=== PATIENT | male | born 1965 | race Caucasian/White ===

== ENCOUNTER → 2020-12-04 10:02 | Outpatient (CLI) | payer SELFPAY | PROVIDERS: PCP Internal Medicine; Visit Provider Nurse Practitioner | DX: Z20.822 Contact with and (suspected) exposure to COVID-19 (principal); U07.1 COVID-19 | CPT/HCPCS: C9803; U0003; U0005 ==

== ENCOUNTER 2021-08-17 21:42 | Emergency (ER) | payer SELFPAY ==
[2021-08-17 21:42] VITALS: BP 172/97; PULSE 115; RESP 16; TEMP 36.9; O2SAT 95; BMI 13.8
--- NOTE | 2021-08-17 21:56 | HMH.EDMCLR ---
ED Disposition Clinical Impression: Medical clearance for incarceration Disposition: Home, Self-Care Condition on Discharge: Good Instructions: DI for Substance Use Disorder Additional Instructions: see pcp for follow up Referrals: Provider,Referral, [Primary Care Provider] - - Critical Care Critical Care Time: No Attestation: On 08/17/21, the high probability of a clinically significant, sudden or life threatening deterioration of the following system(s) required my full and direct attention, intervention and personal management. The time I documented below is in addition to time spent performing reported procedures but includes the following listed in this critical care notation. Medical Decision Making - Medical Records Medical records reviewed: Yes: I reviewed the patient's medical records. - Jacoby Inquiry Pt receiving controlled substance: No Vital Signs: 08/17/21 21:42 Temperature 98.5 F Temperature Source Oral Pulse Rate [Right] 115 H Respiratory Rate 16 Blood Pressure [Right Arm] 172/97 H Blood Pressure Mean [Right Arm] 122 02 Sat by Pulse Oximetry 95 - Lab Data Lab results reviewed: Yes: I reviewed the patient's lab results. Medical Decision Narrative: stable exam Medical Clearance HPI - General Chief complaint: Medical Clearance Stated complaint: MEDICAL CLEARANCE AND BLOOD DRAW Time Seen by Provider: 08/17/21 21:56 Mode of Arrival: Ambulatory Source of Information: Patient, Medical Record Limitations: No Limitations Description of Symptoms (Recalled from ER Triage Doc. by RN): pt here for medical clearence and has no c/o - History of Present Illness HPI Narrative: no c/o MD complaint: medical clearance requested Onset (ago): hour(s) Place: home Traumatic Symptoms: denies traumatic injury Associated Symptoms: denies other symptoms Treatments Prior to Arrival: none Allergies/Adverse reactions: Allergies Allergy/AdvReac Type Severity Reaction Status Date / Time NO KNOWN ALLERGIES Allergy Uncoded 10/21/18 09:00 [facility] History - Hepatitis A Screen Attestation statement:: This patient has been screened for Hepatitis A risk factors. I have reviewed the patient's past medical history: Yes Medical History: Denies:: Diabetes Mellitus Type 1, Diabetes Mellitus Type 2, Lung Disease, Seizures Other Surgeries: Yes: No Previous Surgery, Colonoscopy Amputation: No Fractures: No - Social History Smoking Status: Current some day smoker Tobacco Type: cigarettes Alcohol Intake: current Alcohol Intake Frequency:: 3 or more drinks per day Substance Use Type: denies use Occupational Status: employed Housing: house Household Members: family Family Hx:: Diabetes, Heart Attack ROS Obtained: Yes All systems reviewed & no additional complaints Physical Exam - General General appearance: alert - Head Head exam: normocephalic - Eye Eye exam: Present: PERRL, EOMI - ENT ENT exam: Present: mucous membranes moist - Neck Neck exam: Present: trachea midline - Respiratory Respiratory exam: Absent: respiratory distress - Cardiovascular Cardiovascular exam: Present: regular rate - Abdominal Exam Abdominal exam: Present: soft - Extremities Exam Extremities exam: Present: full ROM - Neurological Exam Neurological exam: Present: alert, CN II-XII intact - Psychiatric Psychiatric exam: Present: normal affect - Skin Skin exam: Absent: rash
[2021-08-17 21:58] VITALS: BP 172/97; PULSE 115; RESP 16; TEMP 36.9; O2SAT 95
== END 2021-08-17 22:04 | disposition home or self-care (01) ==
PROVIDERS: Emergency Provider Emergency Medicine
DX: Z02.89 Encounter for other administrative examinations (principal)
CPT/HCPCS: 99282

== ENCOUNTER 2023-08-12 13:18 | Outpatient (CLI) | payer OTHER, SELFPAY ==
--- OUTSIDE RECORDS SUMMARY | 2023-08-12 13:20 | XMS_ITS | Continuity of Care Document ---
Author Name Unknown Address [address] [place] [id number] Organization [facility] Phone Care Team Providers Care Logistic Manager Name Role Phone MANDY NUNEZ Unavailable MANDY NUNEZ Primary Attending NO, FAMILY P Primary Care MANDY NUNEZ Admitting ALLERGIES AND ADVERSE REACTIONS ALLERGIES AND ADVERSE REACTIONS Code System Allergy Substance Adverse Reaction Date Reaction (Severity) Comment Status Reported By Updated By No Known Allergies [email or web address] on November 14, 2022 1:44:39 PM UTC RESULTS Patient: ZAC SALMON Date of : December [birth year] 1 LABORATORY RESULTS ORDER 200: ACETAMINOPHEN TYL ENOL (LOINC: 3298-7) ORDER DATE: November 14, 2022 1:49:00 PM UTC Specimen Source: Serum/Plasm a PERFORMING LAB: [address] [id number] Result Comment: Final Result Date: November 14, 2022 2:05:00 PM UTC (TECH: TH) LOINC TEST FLAG RESULT REFERENCE RANGE UPDA JEFF BY 3298-7 Acetaminophen [Mass/volume] in Serum or Plasma L 0 ug/mL 10 ug/mL - 30 ug/mL November 14, 2022 2:05:00 PM UTC (TECH: TH) ORDER 300: CBC AUTO W DIFF ( LOINC: 10074-4) ORDER DATE: November 14, 2022 1:49:00 PM UTC Specimen Source: Whole Blood PERFORMING LAB: [address] [id number] Result Comment: Final Result Date: November 14, 2022 2:01:00 PM UTC (TECH: TH) LOINC TEST FLAG RESULT REFERENCE RANGE UPDA JEFF BY 6690-2 Leukocytes [#/volume] in Blood by Automated count N 5.3 10^3/uL 4.5 10^3/uL - 11.5 10^3/uL November 14, 2022 2:01:00 PM UTC (TECH: TH) 789-8 Erythrocytes [#/volume] in Blood by Automated count N 4.32 10^6/uL 4.25 10^6/uL - 5.57 10^6/uL November 14, 2022 2:01:00 PM UTC (TECH: TH) 718-7 Hemoglobin [Mass/volume] in Blood N 15.2 g/dL 13.5 g/dL - 17.2 g/dL November 14, 2022 2:01:00 PM UTC (TECH: TH) 03474-8 Hematocrit [Volume Fraction] of Blood N 43.8 % 42.0 % - 52.0 % November 14, 2022 2:01:00 PM UTC (TECH: TH) 787-2 Erythrocyte mean corpuscular volume [Entitic volume] by Automated count H 101.4 fl 80 fl - 95 fl November 14, 2022 2:01:00 PM UTC (TECH: TH) 59941-7 Erythrocyte mean corpuscular hemoglobin [Entitic mass] in Blood from Fetus by Automated count H 35.2 pg 27.0 pg - 34.0 pg November 14, 2022 2:01:00 PM UTC (TECH: TH) 10489-4 Erythrocyte mean corpuscular hemoglobin concentration [Mass/volume] in Blood from Fetus by Automated count N 34.7 g/dL 32.0 g/dL - 36.0 g/dL November 14, 2022 2:01:00 PM UTC (TECH: TH) 28307-6 Platelets [#/volume] in Blood L 123 10^3/uL 150 10^3/uL - 450 10^3/uL November 14, 2022 2:01:00 PM UTC (TECH: TH) 08652-9 Erythrocyte distribution width [Ratio] L 12.0 % 12.3 % - 15.1 % November 14, 2022 2:01:00 PM UTC (TECH: TH) 96761-5 Platelet mean volume [Entitic volume] in Blood by Automated count H 10.5 fl 7.4 fl - 10.4 fl November 14, 2022 2:01:00 PM UTC (TECH: TH) 21544-1 Granulocytes/100 leukocytes in Blood by Automated count N 68.8 % 40 % - 75 % November 14, 2022 2:01:00 PM UTC (TECH: TH) 736-9 Lymphocytes/100 leukocytes in Blood by Automated count N 19.8 % 15 % - 57 % November 14, 2022 2:01:00 PM UTC (TECH: TH) 5905-5 Monocytes/100 leukocytes in Blood by Automated count N 9.1 % 4.0 % - 12.0 % November 14, 2022 2:01:00 PM UTC (TECH: TH) 713-8 Eosinophils/100 leukocytes in Blood by Automated count N 1.5 % 0.0 % - 4.0 % November 14, 2022 2:01:00 PM UTC (TECH: TH) 706-2 Basophils/100 leukocytes in Blood by Automated count N 0.8 % 0.0 % - 1.0 % November 14, 2022 2:01:00 PM UTC (TECH: TH) 21728-4 Immature granulocytes [#/volume] in Blood N 0.0 % 0.0 % - 0.8 % November 14, 2022 2:01:00 PM UTC (TECH: TH) 83273-7 Granulocytes [#/volume] in Blood by Automated count N 3.61 10^3/uL November 14, 2022 2:01:00 PM UTC (TECH: TH) 731-0 Lymphocytes [#/volume] in Blood by Automated count N 1.04 10^3/uL November 14, 2022 2:01:00 PM UTC (TECH: TH) 742-7 Monocytes [#/volume] in Blood by Automated count N 0.48 10^3/uL November 14, 2022 2:01:00 PM UTC (TECH: TH) 711-2 Eosinophils [#/volume] in Blood by Automated count N 0.08 10^3/uL November 14, 2022 2:01:00 PM UTC (TECH: TH) 704-7 Basophils [#/volume] in Blood by Automated count N 0.04 10^3/uL November 14, 2022 2:01:00 PM UTC (TECH: TH) 53325-3 Immature granulocytes [#/volume] in Blood N 0.00 10^3/uL November 14, 2022 2:01:00 PM UT (TECH: TH) 74754-9 Manual differential performed [Presence] in Blood N NO November 14, 2022 2:01:00 PM UT (TECH: TH) ORDER 400: COMP METABOLIC PA CHUCKY (LOINC: 80301-3) ORDER DATE: November 14, 2022 1:49:00 PM UT Specimen Source: Serum/Plasm a PERFORMING LAB: [address] [id number] Result Comment: Final Result Date: November 14, 2022 2:05:00 PM UT (TECH: TH) LOINC TEST FLAG RESULT REFERENCE RANGE UPDA JEFF BY 2951-2 Sodium [Moles/volume ] in Serum or Plasma N 137 mmol/L 136 mmol/L - 145 mmol/L November 14, 2022 2:05:00 PM UT (TECH: TH) 2823-3 Potassium [Moles/volume] in Serum or Plasma N 3.9 mmol/L 3.5 mmol/L - 5.1 mmol/L November 14, 2022 2:05:00 PM UT (TECH: TH) 5-0 Chloride [Moles/volu me] in Serum or Plasma N 99 mmol/L 98 mmol/L - 107 mmol/L November 14, 2022 2:05:00 PM UT (TECH: TH) 8-9 Carbon dioxide, tota l [Moles/volume] in Serum or Plasma N 30 mmol/L 21 mmol/L - 32 mmol/L November 14, 2022 2:05:00 PM UT (TECH: TH) 87083-3 Anion gap 3 in Serum or Plasma N 8.0 November 14, 2022 2:05:00 PM UT (TECH: TH) 2345-7 Glucose [Mass/volume ] in Serum or Plasma H 155 mg/dL 70 mg/dL - 110 mg/dL November 14, 2022 2:05:00 PM UT (TECH: TH) 3094-0 Urea nitrogen [Mass/volume] in Serum or Plasma N 10 mg/dL 7 mg/dL - 18 mg/dL November 14, 2022 2:05:00 PM UTC (TECH: TH) 2160-0 Creatinine [Mass/volume] in Serum or Plasma N 1.1 mg/dL 0.8 mg/dL - 1.3 mg/dL November 14, 2022 2:05:00 PM [facility] (TECH: TH) 3097-3 Urea nitrogen/Creatinine [Mass Ratio] in Serum or Plasma N 9.1 Ratio 9 Ratio - 21 Ratio November 14, 2022 2:05:00 PM [facility] (TECH: TH) 30130-0 Glomerular filtratio n rate/1.73 sq M.predicted by Creatinine-based formula (MDRD) N 74 mL/min >60 November 14, 2022 2:05:00 PM [facility] (TECH: TH) 2885-2 Protein [Mass/volume ] in Serum or Plasma H 8.4 g/dL 6.4 g/dL - 8.2 g/dL November 14, 2022 2:05:00 PM [facility] (TECH: TH) 1751-7 Albumin [Mass/volume ] in Serum or Plasma N 4.1 g/dL 3.4 g/dL - 5.0 g/dL November 14, 2022 2:05:00 PM [facility] (TECH: TH) 59671-8 Calcium [Mass/volume ] in Serum or Plasma N 9.3 mg/dL 8.5 mg/dL - 10.1 mg/dL November 14, 2022 2:05:00 PM [facility] (TECH: TH) 27504-1 Calcium [Mass/volume ] corrected for total protein in Serum or Plasma N 9.2 mg/dL 8.5 mg/dL - 10.1 mg/dL November 14, 2022 2:05:00 PM [facility] (TECH: TH) 1975-2 Bilirubin.total [Mass/volume] in Serum or Plasma N 1.5 mg/dL 0.4 mg/dL - 1.5 mg/dL November 14, 2022 2:05:00 PM [facility] (TECH: TH) 1920-8 Aspartate aminotransferase [Enzymatic activity/volume] in Serum or Plasma H 121 U/L 15 U/L - 37 U/L November 14, 2022 2:05:00 PM [facility] (TECH: TH) 1742-6 Alanine aminotransferase [Enzymatic activity/volume] in Serum or Plasma H 175 U/L 12 U/L - 78 U/L November 14, 2022 2:05:00 PM [facility] (TECH: TH) 6768-6 Alkaline phosphatase [Enzymatic activity/volume] in Serum or Plasma N 114 U/L 50 U/L - 170 U/L November 14, 2022 2:05:00 PM UTC (TECH: TH) ORDER 500: FENTANYL URINE (L OINC: 70723-8) ORDER DATE: November 14, 2022 1:49:00 PM UTC Specimen Source: URINE PERFORMING LAB: [address] [id number] Result Comment: Final Result Date: November 14, 2022 2:15:00 PM UTC (TECH: TH) LOINC TEST [place] [address]-2 Fentanyl [Presence] in Urine N NEGATIVE NEGATIVE November 14, 2022 2:15:00 PM UTC (TECH: TH) ORDER 600: TRAMADOL URINE (L OINC: 88285-5) ORDER DATE: November 14, 2022 1:49:00 PM UTC Specimen Source: URINE PERFORMING LAB: [address] [id number] Result Comment: Final Result Date: November 14, 2022 2:15:00 PM UTC (TECH: TH) LOINC TEST FLAG [place] [address]-5 Tramadol [Mass/volume] in Urine N NEGATIVE NEGATIVE November 14, 2022 2:15:00 PM UTC (TECH: TH) ORDER 700: URINE DRUG SCREEN - MEDTOX (LOINC: 89216-8) ORDER DATE: November 14, 2022 1:49:00 PM UTC Specimen Source: URINE PERFORMING LAB: [address] [id number] Result Comment: Final Result Date: November 14, 2022 2:14:00 PM UTC (TECH: TH) LOINC TEST FLAG RESULT REFERENCE RANGE UPDATED BY 3530-3 Tetrahydrocannabinol [Mass/volume] in Urine POSITIVE NEGATIVE October 2:14:00 PM UTC (TECH: TH) 3937-0 Phencyclidine [Mass/ volume] in Urine N NEGATIVE NEGATIVE November 14, 2022 2:14:00 PM UTC (TECH: TH) 3398-5 Cocaine [Mass/volume] in Urine N NEGATIVE NEGATIVE November 14, 2022 2:14:00 PM UTC (TECH: TH) 18303-2 Methylenedioxymetham phetamine [Mass/volume] in Urine N NEGATIVE NEGATIVE October 2:14:00 PM UTC (TECH: TH) 8220-6 Opiates [Mass/volume] in Urine N NEGATIVE NEGATIVE November 14, 2022 2:14:00 PM UTC (TECH: TH) 77557-5 Amphetamine [Mass/vo lume] in Urine N NEGATIVE NEGATIVE November 14, 2022 2:14:00 PM UTC (TECH: TH) 9428-4 Benzodiazepines [Mas s/volume] in Urine N NEGATIVE NEGATIVE November 14, 2022 2:14:00 PM UTC (TECH: TH) 93967-7 Tricyclic antidepres sants [Mass/volume] in Urine N NEGATIVE NEGATIVE October 2:14:00 PM UTC (TECH: TH) 3774-7 Methadone [Mass/volume] in Urine N NEGATIV E NEGATIVE November 14, 2022 2:14:00 PM UTC (TECH: TH) 9426-8 Barbiturates [Mass/v olume] in Urine N NEGATIVE NEGATIVE November 14, 2022 2:14:00 PM UTC (TECH: TH) 19386-1 Oxycodone [Mass/volume] in Urine N NEGATIV E NEGATIVE November 14, 2022 2:14:00 PM UTC (TECH: TH) 36063-0 Norpropoxyphene [Mas s/volume] in Urine N NEGATIVE NEGATIVE November 14, 2022 2:14:00 PM UTC (TECH: TH) 3415-7 Buprenorphine [Mass/ volume] in Urine N NEGATIVE NEGATIVE November 14, 2022 2:14:00 PM UTC (TECH: TH) ORDER 800: UA AND MICRO/CULT IF INDICATED (LOINC: 30682-5) ORDER DATE: November 14, 2022 1:49:00 PM UTC Specimen Source: URINE PERFORMING LAB: [address] [id number] Result Comment: Final Result Date: November 14, 2022 2:01:00 PM UTC (TECH: TH) LOINC TEST FLAG RESULT REFERENCE RANGE UPDA JEFF BY 5778-6 Color of Urine N yellow YELLOW Augus 2022 2:01:00 PM UTC (TECH: TH) 5767-9 Appearance of Urine N clear CLEAR November 14, 2022 2:01:00 PM UTC (TECH: TH) 5792-7 Glucose [Mass/volume] in Urine by Test strip N NORM NORMAL November 14, 2022 2:01:00 PM UTC (TECH: TH) 99710-2 Bilirubin.total [Mass/volume] in Urine by Automated test strip N NEGATIVE NEGATIVE November 14, 2022 2:01:00 PM UTC (TECH: TH) 5797-6 Ketones [Mass/volume] in Urine by Test strip N NEGATIVE NEGATIVE November 14, 2022 2:01:00 PM UTC (TECH: TH) 2965-2 Specific gravity of Urine N 1.015 1.005 - 1.035 November 14, 2022 2:01:00 PM UTC (TECH: TH) 27086-8 Erythrocytes [#/volume] in Urine by Automated test strip N NEGATIVE NEGATIVE November 14, 2022 2:01:00 PM UTC (TECH: TH) 61397-7 pH of Urine by Automated test strip N 6.50 5.0 - 7.5 November 14, 2022 2:01:00 PM UTC (TECH: TH) 37689-9 Protein [Presence] in Urine by Test strip N NEGATIVE NEGATIVE November 14, 2022 2:01:00 PM UTC (TECH: TH) 27304-8 Urobilinogen [Mass/volume] in Urine by Automated test strip N 4 mg/dL NORMAL November 14, 2022 2:01:00 PM UTC (TECH: TH) 83245-2 Nitrate [Presence] in Urine N NEGATIVE NEGATIVE November 14, 2022 2:01:00 PM UTC (TECH: TH) 72273-5 Leukocytes [#/volume] in Urine by Test strip N NEGATIVE NEGATIVE November 14, 2022 2:01:00 PM UTC (TECH: TH) 35366-5 Other elements in Urine sediment N NOT REQUIRED November 14, 2022 2:01:00 PM UTC (TECH: TH) 13467-9 Microscopic observation [Identifier] in Urine sediment by Light microscopy N NO November 14, 2022 2:01:00 PM UTC (TECH: TH) ORDER 900: ALCOHOL QUANT (LO INC: 5645-7) ORDER DATE: November 14, 2022 2:29:00 PM UTC Specimen Source: Serum/Plasm a PERFORMING LAB: [address] [id number] Result Comment: Final Result Date: November 14, 2022 2:39:00 PM UTC (TECH: TH) LOINC TEST FLAG RESULT REFERENCE RANGE UPDA JEFF BY 5645-7 Ethanol [Mass/volume ] in Urine N <3 mg/dL 0 mg/dL - 10 mg/dL November 14 2:39:00 PM UTC (TECH: TH) LABORATORY NARRATIVE RESULTS Information is not available RADIOLOGY RESULTS Information is not available PATHOLOGY NARRATIVE RESULTS Information is not available MICROBIOLOGY RESULTS No Micro Labs/Results Exist for Patient BLOOD ADMIN RESULTS Information is not available TREATMENT PLAN DISCHARGE MEDICATIONS Status RXNORM Medication Dose Route Frequency Dates Comments U pdated By Patient discharge medication information is not available. PATIENT OPEN ORDERS Code System Description Frequency Occurrences Priority [place] [address] [facility] EKG study ONE TIME 0 Stat November 14, 2022 1:36:00 PM UT MAYRA Zavala MD [id number] on November 14, 2022 1:36:00 PM UT SCHEDULED PROCEDURES Code System Description Status Scheduled Date Upd ated By Patient scheduled procedure information is not available. MEDICATIONS HOME MEDICATIONS Status RXNORM Medication Dose Route Frequency Dates Comments R eported By Updated By Patient not on Self-Medications [id number] on November 14, 2022 1:44:39 PM UT DISCHARGE MEDICATIONS Status RXNORM Medication Dose Route Frequency Dates Comments Physic windy Updated By No Discharge Medication Info rmation Available INPATIENT MEDICATIONS Status RXNORM Medication Dose Route Frequency Rate Quantity Dates Comments Physician Updated By No Inpatient Medication Info rmation Available SOCIAL HISTORY SOCIAL HISTORY SNOMED-CT Social History Element Description Effective Dates Offered Cessation Comment UpdatedBy [id number] Smoking Status Unknown If Ever Smoked SOCIAL HISTORY - Gender Sex: Male SOCIAL HISTORY - Sexual Behavior Sexual Orientation Gender Identity SNOMED-CT Description SNO MED -CT Description Activity Level No of Partners Partner Type UpdatedBy Information is not available HEALTH CONCERNS Problems Concern Status Health Concern problem infor mation not available. Smoking Status Status Years Used Consumed packs p er day Health Concern smoking histo ry information not available. Family History Concern Status Health Concern family histor y information not available. ENCOUNTERS ENCOUNTER INFORMATION Reason for Visit PSYCH PROBLEM Admission November 14, 2022 1:21:00 PM [place] B [address] [id number] Discharge November 14, 2022 4:25:00 PM UT D ISCHARGED TO HOME OR SELF CARE ENCOUNTER DIAGNOSES Notes information is not cesar ilable. Code System Diagnosis Onset Date Diagnosis information is not available. ABSTRACT DIAGNOSES Code System Diagnosis Updated By Abstract Diagnosis informati on is not available. CARE TEAM Care Logistic Manager Role MANDY NUNEZ Referring MANDY NUNEZ Primary Attending FAMILY NO Primary Care MANDY NUNEZ Admitting CARE TEAM CARE logistics system engineer Role on Team Status Start Date End Date Update d By MAYRA Zavala MD Referring normal October 1:45:27 PM UT November 14, 2022 4:25:00 PM [facility] [id number] on November 14, 2022 1:45:27 PM [facility] MAYRA Zavala MD Attending normal October 1:45:27 PM UTC November 14, 2022 4:25:00 PM [facility] [id number] on November 14, 2022 1:45:27 PM [facility] MAYRA Zavala MD Admitting normal October 1:45:27 PM UTC November 14, 2022 4:25:00 PM [facility] [id number] on November 14, 2022 1:45:27 PM [facility] NO FAMILY PHYSICIAN PCP normal October 172022 1:21:31 PM UTC November 14, 2022 4:25:00 PM [place] [id number] on November 14, 2022 1:45:27 PM [facility]
--- OUTSIDE RECORDS SUMMARY | 2023-08-12 13:20 | XMS_ITS | Continuity of Care Document ---
Author Name Unknown Address [address] [place] [phone] Organization [facility] Phone Care Team Providers Care Diabetes Territory Manager Name Role Phone MANDY NUNEZ Unavailable NO, FAMILY P Primary Care MANDY NUNEZ Primary Attending MANDY NUNEZ Admitting ALLERGIES AND ADVERSE REACTIONS ALLERGIES AND ADVERSE REACTIONS Code System Allergy Substance Adverse Reaction Date Reaction (Severity) Comment Status Reported By Updated By No Known Allergies [email or web address] on November 10, 2022 9:00:50 PM UTC RESULTS Patient: ZAC SALMON Date of : December 23 1 LABORATORY RESULTS ORDER 100: ACETAMINOPHEN TYL ENOL (LOINC: 3298-7) ORDER DATE: November 10, 2022 8:47:00 PM UTC Specimen Source: Serum/Plasm a PERFORMING LAB: [address] [id number] Result Comment: Final Result Date: November 10, 2022 9:28:00 PM UTC (TECH: KSM) LOINC TEST FLAG RESULT REFERENCE RANGE UPDA JEFF BY 3298-7 Acetaminophen [Mass/volume] in Serum or Plasma L 0 ug/mL 10 ug/mL - 30 ug/mL November 10, 2022 9:28:00 PM UTC (TECH: KSM) ORDER 200: BILIRUBIN DIRECT (LOINC: 1968-7) ORDER DATE: November 10, 2022 8:47:00 PM UTC Specimen Source: Serum/Plasm a PERFORMING LAB: [address] [id number] Result Comment: Final Result Date: November 10, 2022 9:28:00 PM UTC (TECH: KSM) LOINC TEST FLAG RESULT REFERENCE RANGE UPDA JEFF BY 1968-7 Bilirubin.direct [Mass/volume] in Serum or Plasma N 0.3 mg/dL 0.0 mg/dL - 0.3 mg/dL November 10, 2022 9:28:00 PM UTC (TECH: KSiconDial) ORDER 300: CBC AUTO W DIFF ( LOINC: 81834-6) ORDER DATE: November 10, 2022 8:47:00 PM UTC Specimen Source: Whole Blood PERFORMING LAB: [address] [id number] Result Comment: Final Result Date: November 10, 2022 9:15:00 PM UTC (TECH: citiservi) LOINC TEST FLAG RESULT REFERENCE RANGE UPDA JEFF BY 6690-2 Leukocytes [#/volume] in Blood by Automated count N 7.3 10^3/uL 4.5 10^3/uL - 11.5 10^3/uL November 10, 2022 9:15:00 PM UTC (TECH: citiservi) 789-8 Erythrocytes [#/volume] in Blood by Automated count N 4.50 10^6/uL 4.25 10^6/uL - 5.57 10^6/uL November 10, 2022 9:15:00 PM UTC (TECH: citiservi) 718-7 Hemoglobin [Mass/volume] in Blood N 15.7 g/dL 13.5 g/dL - 17.2 g/dL November 10, 2022 9:15:00 PM UTC (TECH: citiservi) 33680-5 Hematocrit [Volume Fraction] of Blood N 44.6 % 42.0 % - 52.0 % November 10, 2022 9:15:00 PM UTC (TECH: citiservi) 787-2 Erythrocyte mean corpuscular volume [Entitic volume] by Automated count H 99.1 fl 80 fl - 95 fl November 10, 2022 9:15:00 PM UTC (TECH: citiservi) 64803-2 Erythrocyte mean corpuscular hemoglobin [Entitic mass] in Blood from Fetus by Automated count H 34.9 pg 27.0 pg - 34.0 pg November 10, 2022 9:15:00 PM UTC (TECH: citiservi) 42693-2 Erythrocyte mean corpuscular hemoglobin concentration [Mass/volume] in Blood from Fetus by Automated count N 35.2 g/dL 32.0 g/dL - 36.0 g/dL November 10, 2022 9:15:00 PM UTC (TECH: KSM) 94268-3 Platelets [#/volume] in Blood N 161 10^3/uL 150 10^3/uL - 450 10^3/uL November 10, 2022 9:15:00 PM UTC (TECH: KSM) 21843-3 Erythrocyte distribution width [Ratio] L 12.2 % 12.3 % - 15.1 % November 10, 2022 9:15:00 PM UTC (TECH: KSM) 42318-6 Platelet mean volume [Entitic volume] in Blood by Automated count N 9.7 fl 7.4 fl - 10.4 fl November 10, 2022 9:15:00 PM UTC (TECH: KSM) 33756-5 Granulocytes/100 leukocytes in Blood by Automated count N 66.2 % 40 % - 75 % November 10, 2022 9:15:00 PM UTC (TECH: KSM) 736-9 Lymphocytes/100 leukocytes in Blood by Automated count N 23.0 % 15 % - 57 % November 10, 2022 9:15:00 PM UTC (TECH: KSM) 5905-5 Monocytes/100 leukocytes in Blood by Automated count N 9.2 % 4.0 % - 12.0 % November 10, 2022 9:15:00 PM UTC (TECH: KSM) 713-8 Eosinophils/100 leukocytes in Blood by Automated count N 1.0 % 0.0 % - 4.0 % November 10, 2022 9:15:00 PM UTC (TECH: KSM) 706-2 Basophils/100 leukocytes in Blood by Automated count N 0.5 % 0.0 % - 1.0 % November 10, 2022 9:15:00 PM UTC (TECH: KSM) 17004-4 Immature granulocytes [#/volume] in Blood N 0.1 % 0.0 % - 0.8 % November 10, 2022 9:15:00 PM UTC (TECH: KSM) 72553-6 Granulocytes [#/volume] in Blood by Automated count N 4.83 10^3/uL November 10, 2022 9:15:00 PM UTC (TECH: KSM) 731-0 Lymphocytes [#/volume] in Blood by Automated count N 1.68 10^3/uL November 10, 2022 9:15:00 PM UTC (TECH: citiservi) 742-7 Monocytes [#/volume] in Blood by Automated count N 0.67 10^3/uL November 10, 2022 9:15:00 PM UTC (TECH: KSM) 711-2 Eosinophils [#/volume] in Blood by Automated count N 0.07 10^3/uL November 10, 2022 9:15:00 PM UTC (TECH: ZenkarsM) 704-7 Basophils [#/volume] in Blood by Automated count N 0.04 10^3/uL November 10, 2022 9:15:00 PM UTC (TECH: citiservi) 72378-7 Immature granulocytes [#/volume] in Blood N 0.01 10^3/uL November 10, 2022 9:15:00 PM UTC (TECH: citiservi) 07094-1 Manual differential performed [Presence] in Blood N NO November 10, 2022 9:15:00 PM UTC (TECH: KSiconDial) ORDER 400: COMP METABOLIC PA CHUCKY (LOINC: 64862-0) ORDER DATE: November 10, 2022 8:47:00 PM UTC Specimen Source: Serum/Plasm a PERFORMING LAB: [address] [id number] Result Comment: Final Result Date: November 10, 2022 9:28:00 PM UTC (TECH: KSiconDial) LOINC TEST FLAG RESULT REFERENCE RANGE UPDA JEFF BY 2951-2 Sodium [Moles/volume ] in Serum or Plasma N 139 mmol/L 136 mmol/L - 145 mmol/L November 10, 2022 9:28:00 PM UTC (TECH: KSM) 2823-3 Potassium [Moles/volume] in Serum or Plasma N 3.7 mmol/L 3.5 mmol/L - 5.1 mmol/L November 10, 2022 9:28:00 PM UTC (TECH: ZenkarsM) 5-0 Chloride [Moles/volu me] in Serum or Plasma N 99 mmol/L 98 mmol/L - 107 mmol/L November 10, 2022 9:28:00 PM UTC (TECH: KSM) 2027-9 Carbon dioxide, tota l [Moles/volume] in Serum or Plasma N 25 mmol/L 21 mmol/L - 32 mmol/L November 10, 2022 9:28:00 PM [facility] (TECH: citiservi) 04559-3 Anion gap 3 in Serum or Plasma N 15.0 November 10, 2022 9:28:00 PM [facility] (TECH: citiservi) 2345-7 Glucose [Mass/volume ] in Serum or Plasma H 203 mg/dL 70 mg/dL - 110 mg/dL November 10, 2022 9:28:00 PM [facility] (TECH: citiservi) 3094-0 Urea nitrogen [Mass/volume] in Serum or Plasma N 9 mg/dL 7 mg/dL - 18 mg/dL November 10, 2022 9:28:00 PM [facility] (TECH: citiservi) 2160-0 Creatinine [Mass/volume] in Serum or Plasma N 1.1 mg/dL 0.8 mg/dL - 1.3 mg/dL November 10, 2022 9:28:00 PM [facility] (TECH: citiservi) 3097-3 Urea nitrogen/Creatinine [Mass Ratio] in Serum or Plasma L 8.2 Ratio 9 Ratio - 21 Ratio November 10, 2022 9:28:00 PM [facility] (TECH: citiservi) 01006-8 Glomerular filtratio n rate/1.73 sq M.predicted by Creatinine-based formula (MDRD) N 74 mL/min >60 November 10, 2022 9:28:00 PM [facility] (TECH: citiservi) 2885-2 Protein [Mass/volume ] in Serum or Plasma H 8.6 g/dL 6.4 g/dL - 8.2 g/dL November 10, 2022 9:28:00 PM [facility] (TECH: citiservi) 1751-7 Albumin [Mass/volume ] in Serum or Plasma N 4.1 g/dL 3.4 g/dL - 5.0 g/dL November 10, 2022 9:28:00 PM [facility] (TECH: citiservi) 02268-8 Calcium [Mass/volume ] in Serum or Plasma N 9.4 mg/dL 8.5 mg/dL - 10.1 mg/dL November 10, 2022 9:28:00 PM [facility] (TECH: citiservi) 50943-2 Calcium [Mass/volume ] corrected for total protein in Serum or Plasma N 9.3 mg/dL 8.5 mg/dL - 10.1 mg/dL November 10, 2022 9:28:00 PM UTC (TECH: citiservi) 1975-2 Bilirubin.total [Mass/volume] in Serum or Plasma N 0.7 mg/dL 0.4 mg/dL - 1.5 mg/dL November 10, 2022 9:28:00 PM UTC (TECH: citiservi) 1920-8 Aspartate aminotransferase [Enzymatic activity/volume] in Serum or Plasma H 95 U/L 15 U/L - 37 U/L November 10, 2022 9:28:00 PM UTC (TECH: citiservi) 1742-6 Alanine aminotransferase [Enzymatic activity/volume] in Serum or Plasma H 133 U/L 12 U/L - 78 U/L November 10, 2022 9:28:00 PM UTC (TECH: citiservi) 6768-6 Alkaline phosphatase [Enzymatic activity/volume] in Serum or Plasma N 127 U/L 50 U/L - 170 U/L November 10, 2022 9:28:00 PM UTC (TECH: citiservi) ORDER 500: ALCOHOL QUANT (LO INC: 5645-7) ORDER DATE: November 10, 2022 8:47:00 PM UT Specimen Source: Serum/Plasm a PERFORMING LAB: [address] [id number] Result Comment: Final Result Date: November 10, 2022 9:28:00 PM UT (TECH: citiservi) LOINC TEST FLAG RESULT REFERENCE RANGE UPDA JEFF BY 5645-7 Ethanol [Mass/volume] in Urine H 142 mg/dL 0 mg/dL - 10 mg/dL November 10 9:28:00 PM UTC (TECH: citiservi) ORDER 600: FENTANYL URINE (L OINC: 57592-0) ORDER DATE: November 10, 2022 8:47:00 PM UTC Specimen Source: URINE PERFORMING LAB: [address] [id number] Result Comment: Final Result Date: November 10, 2022 9:06:00 PM UT (TECH: citiservi) LOINC TEST [place] [address]-5 Fentanyl [Presence] in Urine N NEGATIVE NEGATIVE November 10, 2022 9:06:00 PM UT (TECH: citiservi) ORDER 700: SALICYLATE QUANT (LOINC: 4024-6) ORDER DATE: November 10, 2022 8:47:00 PM UTC Specimen Source: Serum/Plasm a PERFORMING LAB: [address] [id number] Result Comment: Final Result Date: November 10, 2022 9:28:00 PM UTC (TECH: KSM) LOINC TEST FLAG RESULT REFERENCE RANGE UPDA JEFF BY 4024-6 Salicylates [Mass/volume] in Serum or Plasma L 0.8 mg/dl 2.8 mg/dl - 20 mg/dl November 10, 2022 9:28:00 PM UTC (TECH: KSM) ORDER 800: THYROID PANEL T3U /T4/FTI (LOINC: 69030-1) ORDER DATE: November 10, 2022 8:47:00 PM UTC Specimen Source: Serum/Plasm a PERFORMING LAB: [address] [id number] Result Comment: Final Result Date: November 10, 2022 9:28:00 PM UTC (TECH: KSM) LOINC TEST FLAG RESULT REFERENCE RANGE UPDA JEFF BY 3050-2 Triiodothyronine res in uptake (T3RU) in Serum or Plasma N 37 % 30 % - 40 % November 10, 2022 9:28:00 PM UTC (TECH: KSM) 3026-2 Thyroxine (T4) [Mass/volume] in Serum or Plasma N 6.0 ug/dL 4.5 ug/dL - 12.1 ug/dL November 10, 2022 9:28:00 PM UTC (TECH: KSM) 93079-3 Thyroxine (T4) free index in Serum or Plasma by calculation N 2.2 1.6 - 3.7 November 10, 2022 9:28:00 PM UTC (TECH: KSM) ORDER 900: TRAMADOL URINE (L OINC: 06729-0) ORDER DATE: November 10, 2022 8:47:00 PM UTC Specimen Source: URINE PERFORMING LAB: [address] [id number] Result Comment: Final Result Date: November 10, 2022 9:06:00 PM UTC (TECH: KSM) LOINC TEST FLAG [place] [address]-4 Tramadol [Mass/volume] in Urine N NEGATIVE NEGATIVE November 10, 2022 9:06:00 PM UTC (TECH: KSM) ORDER 1000: URINE DRUG SCREE N - MEDTOX (LOINC: 15840-8) ORDER DATE: November 10, 2022 8:47:00 PM UTC Specimen Source: URINE PERFORMING LAB: [address] [id number] Result Comment: Final Result Date: November 10, 2022 9:06:00 PM UTC (TECH: KSM) LOINC TEST FLAG RESULT REFERENCE RANGE UPDATED BY 3530-3 Tetrahydrocannabinol [Mass/volume] in Urine POSITIVE NEGATIVE October 9:06:00 PM UTC (TECH: KSM) 3937-0 Phencyclidine [Mass/ volume] in Urine N NEGATIVE NEGATIVE November 10, 2022 9:06:00 PM UTC (TECH: KSM) 3398-5 Cocaine [Mass/volume] in Urine N NEGATIVE NEGATIVE November 10, 2022 9:06:00 PM UTC (TECH: KSM) 80405-2 Methylenedioxymetham phetamine [Mass/volume] in Urine N NEGATIVE NEGATIVE October 9:06:00 PM UTC (TECH: KSM) 8220-6 Opiates [Mass/volume] in Urine N NEGATIVE NEGATIVE November 10, 2022 9:06:00 PM UTC (TECH: KSM) 32611-0 Amphetamine [Mass/vo lume] in Urine N NEGATIVE NEGATIVE November 10, 2022 9:06:00 PM UTC (TECH: KSM) 9428-4 Benzodiazepines [Mas s/volume] in Urine N NEGATIVE NEGATIVE November 10, 2022 9:06:00 PM UTC (TECH: KSM) 34862-4 Tricyclic antidepres sants [Mass/volume] in Urine N NEGATIVE NEGATIVE October 9:06:00 PM UTC (TECH: KSM) 3774-7 Methadone [Mass/volume] in Urine N NEGATIV E NEGATIVE November 10, 2022 9:06:00 PM UTC (TECH: KSM) 9426-8 Barbiturates [Mass/v olume] in Urine N NEGATIVE NEGATIVE November 10, 2022 9:06:00 PM UTC (TECH: KSM) 31571-5 Oxycodone [Mass/volume] in Urine N NEGATIV E NEGATIVE November 10, 2022 9:06:00 PM UTC (TECH: KSM) 87318-6 Norpropoxyphene [Mas s/volume] in Urine N NEGATIVE NEGATIVE November 10, 2022 9:06:00 PM UTC (TECH: citiservi) 3415-7 Buprenorphine [Mass/ volume] in Urine N NEGATIVE NEGATIVE November 10, 2022 9:06:00 PM UTC (TECH: KSM) ORDER 1100: UA AND MICRO/CUL T IF INDICATED (LOINC: 12435-4) ORDER DATE: November 10, 2022 8:47:00 PM UTC Specimen Source: URINE PERFORMING LAB: [address] [id number] Result Comment: Final Result Date: November 10, 2022 8:53:00 PM UTC (TECH: citiservi) LOINC TEST FLAG RESULT REFERENCE RANGE UPDA JEFF BY 5778-6 Color of Urine N yellow YELLOW Augus 2022 8:53:00 PM UTC (TECH: KSiconDial) 5767-9 Appearance of Urine N clear CLEAR November 10, 2022 8:53:00 PM UTC (TECH: citiservi) 5792-7 Glucose [Mass/volume ] in Urine by Test strip N NORM NORMAL November 10 023 8:53:00 PM UTC (TECH: citiservi) 86341-4 Bilirubin.total [Mass/volume] in Urine by Automated test strip N NEGATIVE NEGATIVE October 162022 8:53:00 PM UTC (TECH: citiservi) 5797-6 Ketones [Mass/volume ] in Urine by Test strip N NEGATIVE NEGATIVE November 10 023 8:53:00 PM UTC (TECH: citiservi) 2965-2 Specific gravity of Urine N 1.005 1.005 - 1.035 November 10, 2022 8:53:00 PM UTC (TECH: citiservi) 90648-7 Erythrocytes [#/volu me] in Urine by Automated test strip N NEGATIVE NEGATIVE November 10, 2022 8:53:00 PM UTC (TECH: citiservi) 28736-0 pH of Urine by Autom ated test strip N 6.50 5.0 - 7.5 November 10, 2022 8:53:00 PM UTC (TECH: KSM) 26753-5 Protein [Presence] i n Urine by Test strip N NEGATIVE NEGATIVE November 10 023 8:53:00 PM UTC (TECH: KSM) 08875-6 Urobilinogen [Mass/volume] in Urine by Automated test strip N NORM NORMAL October 162022 8:53:00 PM UTC (TECH: citiservi) 19580-5 Nitrate [Presence] i n Urine N NEGATIVE NEGATIVE November 10, 2022 8:53:00 PM UTC (TECH: citiservi) 14025-0 Leukocytes [#/volume ] in Urine by Test strip N NEGATIVE NEGATIVE November 10 023 8:53:00 PM UTC (TECH: citiservi) 73834-4 Other elements in Ur ine sediment N NOT REQUIRED November 10, 2022 8:53:00 PM UTC (TECH: citiservi) 13056-4 Microscopic observat ion [Identifier] in Urine sediment by Light microscopy N NO November 10, 2022 8:53:00 PM UTC (TECH: citiservi) LABORATORY NARRATIVE RESULTS Information is not available [...] Priority [place] [address]-3 [facility] EKG study ONE TIME 0 Stat November 10, 2022 8:47:00 PM UT MAYRA Zavala MD [id number] on November 10, 2022 8:47:00 PM [facility] SCHEDULED PROCEDURES Code System Description Status Scheduled Date Upd ated By Patient scheduled procedure information is not available. MEDICATIONS HOME MEDICATIONS Status RXNORM Medication Dose Route Frequency Dates Comments R eported By Updated By Patient not on Self-Medications [id number] on November 10, 2022 9:00:51 PM UT DISCHARGE MEDICATIONS Status RXNORM Medication Dose Route Frequency Dates Comments Physic windy Updated By No Discharge Medication Info rmation Available INPATIENT MEDICATIONS Status RXNORM Medication Dose Route Frequency Rate Quantity Dates Comments Physician [facility] [id number] thiamine (VITAMIN B-1) 100 MG/ML SOLN 100.0 MG ONE TIME ONLY Start: November 10, 2022 9:06:0 0 PM UT End: November 10, 2022 9:06:0 0 PM UT MAYRA Zavala MD INTERFAC ED on November 10, 2022 9:05:00 PM UTC Discont inued [id number] multiple vitamin (INFUVITE) INJ 10.0 ML INTRAV ENOUS ONE TIME ONLY Start: November 10, 2022 9:06:0 0 PM UTC End: November 10, 2022 9:06:0 0 PM UTC MAYRA Zavala MD INTERFAC ED on November 10, 2022 9:05:00 PM UTC Discont inued [id number] MAG SULF 2GM/50ML PRE-MIX 40 MG/ML SOLN 2.0 GM INTRAV ENOUS ONE TIME ONLY Start: November 10, 2022 9:10:0 0 PM UTC End: November 10, 2022 9:10:0 0 PM UTC MAYRA Zavala MD INTERFAC ED on November 10, 2022 9:10:00 PM UTC SOCIAL HISTORY SOCIAL HISTORY SNOMED-CT Social History Element Description Effective Dates Offered Cessation Comment UpdatedBy [id number] Smoking Status Unknown If Ever Smoked SOCIAL HISTORY - Gender Sex: Male SOCIAL HISTORY - Sexual Behavior Sexual Orientation Gender Identity SNOMED-CT Description SNO MED -CT Description Activity Level No of Partners Partner Type UpdatedBy Information is not available VITAL SIGNS PATIENT VITAL SIGNS This section displays the mo st recent value for each vital sign as of November 12, 2022 9:50:31 AM UT Loinc Code Vital Sign Activity Date Result Updated By 8310-5 Body temperature November 10, 2022 8:48:00 PM UTC 98.0 [degF] [id number] on November 11, 2022 11:25:40 [place] [address]-3 Body weight Measured November 11, 2022 11:25:43 PM UTC 90.718 kg (200.0 lb) [id number] on November 11, 2022 11:25:43 PM UT 8462-4 Diastolic blood pressure November 10, 2022 11:24:17 PM UTC 78.0 mm[Hg] [id number] on November 11, 2022 11:25:44 PM UT 8867-4 Heart rate November 10, 2022 11:24:17 PM UTC 84 /min [id number] on November 11, 2022 11:25:[place] [address]-3 Oxygen saturation in Arterial blood by Pulse oximetry November 10, 2022 11:24:17 PM UTC 95.0 % [id number] on November 11, 2022 11:25:44 PM UT 9279-1 Respiratory rate November 10, 2022 11:24:17 PM UTC 18 /min [id number] on November 11, 2022 11:25:44 PM UT 8480-6 Systolic blood pressure November 10, 2022 11:24:17 PM UTC 145.0 mm[Hg] [id number] on November 11, 2022 11:25:44 PM [facility] PEDIATRIC GROWTH CHART - VITAL SIGNS This section displays Head C ircumference Percentile, Weight for Length Percentile and BMI Percentile Loinc Code Pediatric Measure Age (Months) Result Updat ed By No Pediatric Growth Chart Pe rcentile Information Available. HEALTH CONCERNS Problems Concern Status Health Concern problem infor mation not available. Smoking Status Status Years Used Consumed packs p er day Health Concern smoking histo ry information not available. Family History Concern Status Health Concern family histor y information not available. ENCOUNTERS ENCOUNTER INFORMATION Reason for Visit PSYCH PROBLEM Admission November 10, 2022 8:38:00 PM [facility] [address] [id number] Discharge November 10, 2022 11:25:00 PM [facility] DISCHARGED TO HOME OR SELF CARE ENCOUNTER DIAGNOSES Notes information is not cesar ilable. Code System Diagnosis Onset Date Diagnosis information is not available. ABSTRACT DIAGNOSES Code System Diagnosis Updated By F10.20 ICD10 ALCOHOL DEPENDENCE, UNCOMPLI CATED [id number] on November 12, 2022 9:50:07 AM [facility] F10.10 ICD10 ALCOHOL ABUSE, UNCOMPLICATED [id number] on November 12, 2022 9:50:07 AM [facility] Y90.6 ICD10 BLOOD ALCOHOL LE CLIFF OF 120-199 MG/100 ML [id number] on November 12, 2022 9:50:07 AM [place] E66.9 ICD10 OBESITY, UNSPECIFIED [id number] on November 12, 2022 9:50:07 AM UT Z68.26 ICD10 BODY MASS INDEX [BMI] 26.0-2 6.9, ADULT [id number] on November 12, 2022 9:50:07 AM UT Z28.310 ICD10 UNVACCINATED FOR COVID-19 PQ [id number] on November 12, 2022 9:50:07 AM UT Z28.9 ICD10 IMMUNIZATION NOT CARRIED OUT FOR UNSPECIFIED REASON [id number] on November 12, 2022 9:50:07 AM UTC Z87.891 ICD10 PERSONAL HISTORY OF NICOTINE DEPENDENCE [id number] on November 12, 2022 9:50:07 AM UTC CARE TEAM Care Diabetes Territory Manager Role MANDY NUNEZ Referring FAMILY NO Primary Care MANDY NUNEZ Primary Attending MANDY NUNEZ Admitting CARE TEAM CARE pointer helper Role on Team Status Start Date End Date Update d By MAYRA Zavala MD Referring normal October 9:01:12 PM UTC November 10, 2022 4:00:00 AM UTC [id number] on November 10, 2022 9:01:12 PM UTC MAYRA Zavala MD Attending normal October 9:01:12 PM UTC November 10, 2022 4:00:00 AM UTC [id number] on November 10, 2022 9:01:12 PM UTC MAYRA Zavala MD Admitting normal October 9:01:12 PM UTC November 10, 2022 4:00:00 AM UTC [id number] on November 10, 2022 9:01:12 PM UTC NO FAMILY PHYSICIAN PCP normal October 162022 8:41:07 PM UTC November 10, 2022 4:00:00 AM UTC [id number] on November 10, 2022 9:01:12 PM UTC
--- OUTSIDE RECORDS SUMMARY | 2023-08-12 13:20 | XMS_ITS | Continuity of Care Document ---
Author Name Unknown Address [address] [place] [phone] Organization [facility] Phone Care Team Providers Care Digital Campaign Specialist Name Role Phone MANDY NUNEZ Unavailable NO, FAMILY P Primary Care MANDY NUNEZ Primary Attending MANDY NUNEZ Admitting ALLERGIES AND ADVERSE REACTIONS ALLERGIES AND ADVERSE REACTIONS Code System Allergy Substance Adverse Reaction Date Reaction (Severity) Comment Status Reported By Updated By No Known Allergies [id number] on November 10, 2022 9:00:50 PM UTC RESULTS Patient: ZAC SALMON Date of : December 23 1 LABORATORY RESULTS ORDER 100: ACETAMINOPHEN TYL ENOL (LOINC: 3298-7) ORDER DATE: November 10, 2022 8:47:00 PM UTC Specimen Source: Serum/Plasm a PERFORMING LAB: [address] [id number] Result Comment: Final Result Date: November 10, [...] UTC Specimen Source: Serum/Plasm a PERFORMING LAB: [address] [id number] Result Comment: Final Result Date: November 10, 2022 9:28:00 PM UTC (TECH: [employer]) LOINC TEST FLAG RESULT REFERENCE RANGE UPDA JEFF BY 1968-7 Bilirubin.direct [Mass/volume] in Serum or Plasma N 0.3 mg/dL 0.0 mg/dL - 0.3 mg/dL November 10, 2022 9:28:00 PM UTC (TECH: [employer]) ORDER 300: CBC AUTO W DIFF ( LOINC: 85806-9) ORDER DATE: November 10, 2022 8:47:00 PM UTC Specimen Source: Whole Blood PERFORMING LAB: [address] [id number] Result Comment: Final Result Date: November 10, 2022 9:15:00 PM UTC (TECH: [employer]) LOINC TEST FLAG RESULT REFERENCE RANGE UPDA JEFF BY 6690-2 Leukocytes [#/volume] in Blood by Automated count N 7.3 10^3/uL 4.5 10^3/uL - 11.5 10^3/uL November 10, 2022 9:15:00 PM UTC (TECH: [employer]) 789-8 Erythrocytes [#/volume] in Blood by Automated count N 4.50 10^6/uL 4.25 10^6/uL - 5.57 10^6/uL November 10, 2022 9:15:00 PM UTC (TECH: [employer]) 718-7 Hemoglobin [Mass/volume] in Blood N 15.7 g/dL 13.5 g/dL - 17.2 g/dL November 10, 2022 9:15:00 PM UTC (TECH: [employer]) 92580-3 Hematocrit [Volume Fraction] of Blood N 44.6 % 42.0 % - 52.0 % November 10, 2022 9:15:00 PM UTC (TECH: [employer]) 787-2 Erythrocyte mean corpuscular volume [Entitic volume] by Automated count H 99.1 fl 80 fl - 95 fl November 10, 2022 9:15:00 PM UTC (TECH: [employer]) 17368-4 Erythrocyte mean corpuscular hemoglobin [Entitic mass] in Blood from Fetus by Automated count H 34.9 pg 27.0 pg - 34.0 pg November 10, 2022 9:15:00 PM UTC (TECH: [employer]) 70588-2 Erythrocyte mean corpuscular hemoglobin concentration [Mass/volume] in Blood from Fetus by Automated count N 35.2 g/dL 32.0 g/dL - 36.0 g/dL November 10, 2022 9:15:00 PM UTC (TECH: [employer]) 98463-1 Platelets [#/volume] in Blood N 161 10^3/uL 150 10^3/uL - 450 10^3/uL November 10, 2022 9:15:00 PM UTC (TECH: [employer]) 29568-3 Erythrocyte distribution width [Ratio] L 12.2 % 12.3 % - 15.1 % November 10, 2022 9:15:00 PM UTC (TECH: [employer]) 78204-3 Platelet mean volume [Entitic volume] in Blood by Automated count N 9.7 fl 7.4 fl - 10.4 fl November 10, 2022 9:15:00 PM UTC (TECH: [employer]) 98563-8 Granulocytes/100 leukocytes in Blood by Automated count [...] 10, 2022 9:15:00 PM UTC (TECH: [employer]) 10962-2 Immature granulocytes [#/volume] in Blood N 0.1 % 0.0 % - 0.8 % November 10, 2022 9:15:00 PM UTC (TECH: [employer]) 51156-4 Granulocytes [#/volume] in Blood by Automated count N 4.83 10^3/uL November 10, 2022 9:15:00 PM UTC (TECH: [employer]) 731-0 Lymphocytes [#/volume] in Blood by Automated count N 1.68 10^3/uL November 10, 2022 9:15:00 PM UTC (TECH: [employer]) 742-7 Monocytes [#/volume] in Blood by Automated count N 0.67 10^3/uL November 10, 2022 9:15:00 PM UTC (TECH: [employer]) 711-2 Eosinophils [#/volume] in Blood by Automated count N 0.07 10^3/uL November 10, 2022 9:15:00 PM UTC (TECH: [employer]) 704-7 Basophils [#/volume] in Blood by Automated count N 0.04 10^3/uL November 10, 2022 9:15:00 PM UTC (TECH: [employer]) 15631-4 Immature granulocytes [#/volume] in Blood N 0.01 10^3/uL November 10, 2022 9:15:00 PM UTC (TECH: [employer]) 55361-8 Manual differential performed [Presence] in Blood N NO November 10, 2022 9:15:00 PM UTC (TECH: [employer]) ORDER 400: COMP METABOLIC PA CHUCKY (LOINC: 79053-0) ORDER DATE: November 10, 2022 8:47:00 PM UTC Specimen Source: Serum/Plasm a PERFORMING LAB: [address] [id number] Result Comment: Final Result Date: November 10, 2022 9:28:00 PM UTC (TECH: [employer]) LOINC TEST FLAG RESULT REFERENCE RANGE UPDA JEFF BY 2951-2 Sodium [Moles/volume ] in Serum or Plasma N 139 mmol/L 136 mmol/L - 145 mmol/L November 10, 2022 9:28:00 PM UTC (TECH: [employer]) 2823-3 Potassium [Moles/volume] in Serum or Plasma N 3.7 mmol/L 3.5 mmol/L - 5.1 mmol/L November 10, 2022 9:28:00 PM UTC (TECH: [employer]) 5-0 Chloride [Moles/volu me] in Serum or Plasma N 99 mmol/L 98 mmol/L - 107 mmol/L November 10, 2022 9:28:00 PM UTC (TECH: [employer]) 2027-9 Carbon dioxide, tota l [Moles/volume] in Serum or Plasma N 25 mmol/L 21 mmol/L - 32 mmol/L November 10, 2022 9:28:00 PM [facility] (TECH: [employer]) 91990-4 Anion gap 3 in Serum or Plasma N 15.0 November 10, 2022 9:28:00 PM [facility] (TECH: [employer]) 2345-7 Glucose [Mass/volume ] in Serum or Plasma H 203 mg/dL 70 mg/dL - 110 mg/dL November 10, 2022 9:28:00 PM [facility] (TECH: [employer]) 3094-0 Urea nitrogen [Mass/volume] in Serum or Plasma N 9 mg/dL 7 mg/dL - 18 mg/dL November 10, 2022 9:28:00 PM [facility] (TECH: [employer]) 2160-0 Creatinine [Mass/volume] in Serum or Plasma N 1.1 mg/dL 0.8 mg/dL - 1.3 mg/dL November 10, 2022 9:28:00 PM [facility] (TECH: [employer]) 3097-3 Urea nitrogen/Creatinine [Mass Ratio] in Serum or Plasma L 8.2 Ratio 9 Ratio - 21 Ratio November 10, 2022 9:28:00 PM [facility] (TECH: [employer]) 76222-0 Glomerular filtratio n rate/1.73 sq M.predicted by Creatinine-based formula (MDRD) N 74 mL/min >60 November 10, 2022 9:28:00 PM [facility] (TECH: [employer]) 2885-2 Protein [Mass/volume ] in Serum or Plasma H 8.6 g/dL 6.4 g/dL - 8.2 g/dL November 10, 2022 9:28:00 PM [facility] (TECH: [employer]) 1751-7 Albumin [Mass/volume ] in Serum or Plasma N 4.1 g/dL 3.4 g/dL - 5.0 g/dL November 10, 2022 9:28:00 PM [place] (TECH: [employer]) 11493-5 Calcium [Mass/volume ] in Serum or Plasma N 9.4 mg/dL 8.5 mg/dL - 10.1 mg/dL November 10, 2022 9:28:00 PM [facility] (TECH: [employer]) 09535-4 Calcium [Mass/volume ] corrected for total protein in Serum or Plasma N 9.3 mg/dL 8.5 mg/dL - 10.1 mg/dL November 10, 2022 9:28:00 PM UTC (TECH: [employer]) 1975-2 Bilirubin.total [Mass/volume] in Serum or Plasma N 0.7 mg/dL 0.4 mg/dL - 1.5 mg/dL November 10, 2022 9:28:00 PM UTC (TECH: [employer]) 1920-8 Aspartate aminotransferase [Enzymatic activity/volume] in Serum or Plasma H 95 U/L 15 U/L - 37 U/L November 10, 2022 9:28:00 PM UTC (TECH: [employer]) 1742-6 Alanine aminotransferase [Enzymatic activity/volume] in Serum or Plasma H 133 U/L 12 U/L - 78 U/L November 10, 2022 9:28:00 PM UTC (TECH: [employer]) 6768-6 Alkaline phosphatase [Enzymatic activity/volume] in Serum or Plasma N 127 U/L 50 U/L - 170 U/L November 10, 2022 9:28:00 PM UTC (TECH: [employer]) ORDER 500: ALCOHOL QUANT (LO INC: 5645-7) ORDER DATE: November 10, 2022 8:47:00 PM UT Specimen Source: Serum/Plasm a PERFORMING LAB: [address] [id number] Result Comment: Final Result Date: November 10, 2022 9:28:00 PM UT (TECH: [employer]) LOINC TEST FLAG RESULT REFERENCE RANGE UPDA JEFF BY 5645-7 Ethanol [Mass/volume] in Urine H 142 mg/dL 0 mg/dL - 10 mg/dL November 10 9:28:00 PM UTC (TECH: [employer]) ORDER 600: FENTANYL URINE (L OINC: 13262-5) ORDER DATE: November 10, 2022 8:47:00 PM UTC Specimen Source: URINE PERFORMING LAB: [address] [id number] Result Comment: Final Result Date: November 10, 2022 9:06:00 PM UT (TECH: [employer]) LOINC TEST [place] [address]-9 Fentanyl [Presence] in Urine N NEGATIVE NEGATIVE November 10, 2022 9:06:00 PM UT (TECH: [employer]) ORDER 700: SALICYLATE QUANT (LOINC: 4024-6) ORDER DATE: November 10, 2022 8:47:00 PM UTC Specimen Source: Serum/Plasm a PERFORMING LAB: [address] [id number] Result Comment: Final Result Date: November 10, 2022 9:28:00 PM UTC (TECH: [employer]) LOINC TEST FLAG RESULT REFERENCE RANGE UPDA JEFF BY 4024-6 Salicylates [Mass/volume] in Serum or Plasma L 0.8 mg/dl 2.8 mg/dl - 20 mg/dl November 10, 2022 9:28:00 PM UTC (TECH: [employer]) ORDER 800: THYROID PANEL T3U /T4/FTI (LOINC: 67268-4) ORDER DATE: November 10, 2022 8:47:00 PM UTC Specimen Source: Serum/Plasm a PERFORMING LAB: [address] [id number] Result Comment: Final Result Date: November 10, [...] 10, 2022 9:28:00 PM UTC (TECH: [employer]) 83913-7 Thyroxine (T4) free index in Serum or Plasma by calculation N 2.2 1.6 - 3.7 November 10, 2022 9:28:00 PM UTC (TECH: [employer]) ORDER 900: TRAMADOL URINE (L OINC: 90709-2) ORDER DATE: November 10, 2022 8:47:00 PM UTC Specimen Source: URINE PERFORMING LAB: [address] [id number] Result Comment: Final Result Date: November 10, 2022 9:06:00 PM UTC (TECH: [employer]) LOINC TEST FLAG [place] [address]-5 Tramadol [Mass/volume] in Urine N NEGATIVE NEGATIVE November 10, 2022 9:06:00 PM UTC (TECH: [employer]) ORDER 1000: URINE DRUG SCREE N - MEDTOX (LOINC: 08524-8) ORDER DATE: November 10, 2022 8:47:00 PM UTC Specimen Source: URINE PERFORMING LAB: [address] [id number] Result Comment: Final Result Date: November 10, [...] 10, 2022 9:06:00 PM UTC (TECH: [employer]) 11230-8 Methylenedioxymetham phetamine [Mass/volume] in Urine N NEGATIVE NEGATIVE October 9:06:00 PM UTC (TECH: [employer]) 8220-6 Opiates [Mass/volume] in Urine N NEGATIVE NEGATIVE November 10, 2022 9:06:00 PM UTC (TECH: [employer]) 09189-0 Amphetamine [Mass/vo lume] in Urine N NEGATIVE NEGATIVE November 10, 2022 9:06:00 PM UTC (TECH: [employer]) 9428-4 Benzodiazepines [Mas s/volume] in Urine N NEGATIVE NEGATIVE November 10, 2022 9:06:00 PM UTC (TECH: [employer]) 68378-1 Tricyclic antidepres sants [Mass/volume] in Urine N NEGATIVE NEGATIVE October 9:06:00 PM UTC (TECH: [employer]) 3774-7 Methadone [Mass/volume] in Urine N NEGATIV E NEGATIVE November 10, 2022 9:06:00 PM UTC (TECH: [employer]) 9426-8 Barbiturates [Mass/v olume] in Urine N NEGATIVE NEGATIVE November 10, 2022 9:06:00 PM UTC (TECH: [employer]) 03038-0 Oxycodone [Mass/volume] in Urine N NEGATIV E NEGATIVE November 10, 2022 9:06:00 PM UTC (TECH: [employer]) 21237-7 Norpropoxyphene [Mas s/volume] in Urine N NEGATIVE NEGATIVE November 10, 2022 9:06:00 PM UTC (TECH: [employer]) 3415-7 Buprenorphine [Mass/ volume] in Urine N NEGATIVE NEGATIVE November 10, 2022 9:06:00 PM UTC (TECH: [employer]) ORDER 1100: UA AND MICRO/CUL T IF INDICATED (LOINC: 72589-3) ORDER DATE: November 10, 2022 8:47:00 PM UTC Specimen Source: URINE PERFORMING LAB: [address] [id number] Result Comment: Final Result Date: November 10, 2022 8:53:00 PM UTC (TECH: [employer]) LOINC TEST FLAG RESULT REFERENCE RANGE UPDA JEFF BY 5778-6 Color of Urine N yellow YELLOW Augus 2022 8:53:00 PM UTC (TECH: [employer]) 5767-9 Appearance of Urine N clear CLEAR November 10, 2022 8:53:00 PM UTC (TECH: [employer]) 5792-7 Glucose [Mass/volume ] in Urine by Test strip N NORM NORMAL November 10 023 8:53:00 PM UTC (TECH: [employer]) 96536-5 Bilirubin.total [Mass/volume] in Urine by Automated test strip N NEGATIVE NEGATIVE October 162022 8:53:00 PM UTC (TECH: [employer]) 5797-6 Ketones [Mass/volume ] in Urine by Test strip N NEGATIVE NEGATIVE November 10 023 8:53:00 PM UTC (TECH: [employer]) 2965-2 Specific gravity of Urine N 1.005 1.005 - 1.035 November 10, 2022 8:53:00 PM UTC (TECH: [employer]) 21642-2 Erythrocytes [#/volu me] in Urine by Automated test strip N NEGATIVE NEGATIVE November 10, 2022 8:53:00 PM UTC (TECH: [employer]) 53249-1 pH of Urine by Autom ated test strip N 6.50 5.0 - 7.5 November 10, 2022 8:53:00 PM UTC (TECH: [employer]) 80919-7 Protein [Presence] i n Urine by Test strip N NEGATIVE NEGATIVE November 10 023 8:53:00 PM UTC (TECH: [employer]) 66108-6 Urobilinogen [Mass/volume] in Urine by Automated test strip N NORM NORMAL October 162022 8:53:00 PM UTC (TECH: [employer]) 64270-7 Nitrate [Presence] i n Urine N NEGATIVE NEGATIVE November 10, 2022 8:53:00 PM UTC (TECH: [employer]) 59239-9 Leukocytes [#/volume ] in Urine by Test strip N NEGATIVE NEGATIVE November 10 023 8:53:00 PM UTC (TECH: [employer]) 65813-0 Other elements in Ur ine sediment N NOT REQUIRED November 10, 2022 8:53:00 PM UTC (TECH: [employer]) 53937-5 Microscopic observat ion [Identifier] in Urine sediment by Light microscopy N NO November 10, 2022 8:53:00 PM UTC (TECH: [employer]) LABORATORY NARRATIVE RESULTS Information is not available [...] Priority [place] [address] [facility] EKG study ONE TIME 0 Stat November 10, 2022 8:47:00 PM UT MAYRA Zavala MD [id number] on November 10, 2022 8:47:00 PM [facility] SCHEDULED PROCEDURES Code System Description Status Scheduled Date Upd ated By Patient scheduled procedure information is not available. MEDICATIONS HOME MEDICATIONS Status RXNORM Medication Dose Route Frequency Dates Comments R eported By Updated By Patient not on Self-Medications [id number] on November 10, 2022 9:00:51 PM UT DISCHARGE MEDICATIONS Status RXNORM Medication Dose Route Frequency Dates Comments Physic windy Updated By No Discharge Medication Info rmation Available INPATIENT MEDICATIONS Status RXNORM Medication Dose Route Frequency Rate Quantity Dates Comments Physician Updated By [facility] 021310 thiamine (VITAMIN B-1) 100 MG/ML SOLN 100.0 MG ONE TIME ONLY Start: November 10, 2022 9:06:0 0 PM UT End: November 10, 2022 9:06:0 0 PM UT MAYRA Zavala MD INTERFAC ED on November 10, 2022 9:05:00 PM UTC Discont inued [id number] multiple vitamin (INFUVITE) INJ 10.0 ML INTRAV ENOUS ONE TIME ONLY Start: November 10, 2022 9:06:0 0 PM UTC End: November 10, 2022 9:06:0 0 PM UTC MAYRA Zavala MD INTERFAC ED on November 10, 2022 9:05:00 PM UTC Discont inued [id number] MAG SULF 2GM/50ML PRE-MIX 40 MG/ML SOLN 2.0 GM INTRAV ENOUS ONE TIME ONLY Start: November 10, 2022 9:10:0 0 PM UTC End: November 10, 2022 9:10:0 0 PM UTC MAYRA Zavala MD INTERFAC ED on November 10, 2022 9:10:00 PM UTC SOCIAL HISTORY SOCIAL HISTORY SNOMED-CT Social History Element Description Effective Dates Offered Cessation Comment UpdatedBy [id number] Smoking Status Unknown If Ever Smoked SOCIAL [...] PROBLEM Admission November 10, 2022 8:38:00 PM [place] B [address] [address] Discharge November 10, 2022 11:25:00 PM UT DISCHARGED TO HOME OR SELF CARE ENCOUNTER DIAGNOSES Notes information is not cesar ilable. Code System Diagnosis Onset Date Diagnosis information is not available. ABSTRACT DIAGNOSES Code System Diagnosis Updated By Abstract Diagnosis informati on is not available. CARE TEAM Care Digital Campaign Specialist Role MANDY NUNEZ Referring FAMILY NO Primary Care MANDY NUNEZ Primary Attending MANDY NUNEZ Admitting CARE TEAM CARE feeder associate Role on Team Status Start Date End Date Update d By MAYRA Zavala MD Referring normal October 9:01:12 PM UTC November 10, 2022 11:25:00 PM UT [id number] on November 10, 2022 9:01:12 PM UT MAYRA Zavala MD Attending normal October 9:01:12 PM [facility] November 10, 2022 11:25:00 PM [facility] [id number] on November 10, 2022 9:01:12 PM [facility] MAYRA Zavala MD Admitting normal October 9:01:12 PM [facility] November 10, 2022 11:25:00 PM [facility] [id number] on November 10, 2022 9:01:12 PM [facility] NO FAMILY PHYSICIAN PCP normal October 162022 8:41:07 PM [facility] November 10, 2022 11:25:00 PM [facility] [id number] on November 10, 2022 9:01:12 PM [facility]
--- OUTSIDE RECORDS SUMMARY | 2023-08-12 13:20 | XMS_ITS | Continuity of Care Document ---
Author Name Unknown Address [address] [place] [phone] Organization [facility] Phone Care Team Providers Care Violent Crimes Detective Name Role Phone MANDY NUNEZ Unavailable MANDY NUNEZ Primary Attending NO, FAMILY P Primary Care MANDY NUNEZ Admitting ALLERGIES AND ADVERSE REACTIONS ALLERGIES AND ADVERSE REACTIONS Code System Allergy Substance Adverse Reaction Date Reaction (Severity) Comment Status Reported By Updated By No Known Allergies [id number] on November 14, 2022 1:44:39 PM UTC RESULTS Patient: ZAC SALMON Date of : December 23 1 LABORATORY RESULTS ORDER 200: ACETAMINOPHEN TYL ENOL (LOINC: 3298-7) ORDER DATE: November 14, 2022 1:49:00 PM UTC Specimen Source: Serum/Plasm a PERFORMING LAB: [address] [id number] Result Comment: Final Result Date: November 14, 2022 2:05:00 PM UTC (TECH: TH) LOINC TEST FLAG RESULT REFERENCE RANGE UPDA JEFF BY 3298-7 Acetaminophen [Mass/volume] in Serum or Plasma L 0 ug/mL 10 ug/mL - 30 ug/mL November 14, 2022 2:05:00 PM UTC (TECH: TH) ORDER 300: CBC AUTO W DIFF ( LOINC: 46167-9) ORDER DATE: November 14, 2022 1:49:00 PM UTC Specimen Source: Whole Blood PERFORMING LAB: [address] [id number] Result Comment: Final Result Date: November 14, [...] 14, 2022 2:01:00 PM UTC (TECH: TH) 39466-7 Hematocrit [Volume Fraction] of Blood N 43.8 % 42.0 % - 52.0 % November 14, 2022 2:01:00 PM UTC (TECH: TH) 787-2 Erythrocyte mean corpuscular volume [Entitic volume] by Automated count H 101.4 fl 80 fl - 95 fl November 14, 2022 2:01:00 PM UTC (TECH: TH) 22891-1 Erythrocyte mean corpuscular hemoglobin [Entitic mass] in Blood from Fetus by Automated count H 35.2 pg 27.0 pg - 34.0 pg November 14, 2022 2:01:00 PM UTC (TECH: TH) 85315-0 Erythrocyte mean corpuscular hemoglobin concentration [Mass/volume] in Blood from Fetus by Automated count N 34.7 g/dL 32.0 g/dL - 36.0 g/dL November 14, 2022 2:01:00 PM UTC (TECH: TH) 99207-6 Platelets [#/volume] in Blood L 123 10^3/uL 150 10^3/uL - 450 10^3/uL November 14, 2022 2:01:00 PM UTC (TECH: TH) 09825-0 Erythrocyte distribution width [Ratio] L 12.0 % 12.3 % - 15.1 % November 14, 2022 2:01:00 PM UTC (TECH: TH) 61249-9 Platelet mean volume [Entitic volume] in Blood by Automated count H 10.5 fl 7.4 fl - 10.4 fl November 14, 2022 2:01:00 PM UTC (TECH: TH) 33389-8 Granulocytes/100 leukocytes in Blood by Automated count [...] 14, 2022 2:01:00 PM UTC (TECH: TH) 60069-8 Immature granulocytes [#/volume] in Blood N 0.0 % 0.0 % - 0.8 % November 14, 2022 2:01:00 PM UTC (TECH: TH) 20563-4 Granulocytes [#/volume] in Blood by Automated count [...] 14, 2022 2:01:00 PM UTC (TECH: TH) 60600-2 Immature granulocytes [#/volume] in Blood N 0.00 10^3/uL November 14, 2022 2:01:00 PM [place] (TECH: TH) 46070-7 Manual differential performed [Presence] in Blood N NO November 14, 2022 2:01:00 PM UT (TECH: TH) ORDER 400: COMP METABOLIC PA CHUCKY (LOINC: 49326-8) ORDER DATE: November 14, 2022 1:49:00 PM UT Specimen Source: Serum/Plasm a PERFORMING LAB: [address] [id number] Result Comment: Final Result Date: November 14, [...] 14, 2022 2:05:00 PM UT (TECH: TH) 24670-6 Anion gap 3 in Serum or Plasma [...] 1.3 mg/dL November 14, 2022 2:05:00 PM [facility] (TECH: TH) 3097-3 Urea nitrogen/Creatinine [Mass Ratio] in Serum or Plasma N 9.1 Ratio 9 Ratio - 21 Ratio November 14, 2022 2:05:00 PM [facility] (TECH: TH) 92517-8 Glomerular filtratio n rate/1.73 sq M.predicted by Creatinine-based formula (MDRD) N 74 mL/min >60 November 14, 2022 2:05:00 PM [facility] (TECH: TH) 2885-2 Protein [Mass/volume ] in Serum or Plasma H 8.4 g/dL 6.4 g/dL - 8.2 g/dL November 14, 2022 2:05:00 PM [facility] (TECH: TH) 1751-7 Albumin [Mass/volume ] in Serum or Plasma N 4.1 g/dL 3.4 g/dL - 5.0 g/dL November 14, 2022 2:05:00 PM [facility] (TECH: TH) 00870-8 Calcium [Mass/volume ] in Serum or Plasma N 9.3 mg/dL 8.5 mg/dL - 10.1 mg/dL November 14, 2022 2:05:00 PM [facility] (TECH: TH) 57892-0 Calcium [Mass/volume ] corrected for total protein in Serum or Plasma N 9.2 mg/dL 8.5 mg/dL - 10.1 mg/dL November 14, 2022 2:05:00 PM [facility] (TECH: TH) 1975-2 Bilirubin.total [Mass/volume] in Serum or Plasma N 1.5 mg/dL 0.4 mg/dL - 1.5 mg/dL November 14, 2022 2:05:00 PM [facility] (TECH: TH) 1920-8 Aspartate aminotransferase [Enzymatic activity/volume] in Serum or Plasma H 121 U/L 15 U/L - 37 U/L November 14, 2022 2:05:00 PM [facility] (TECH: TH) 1742-6 Alanine aminotransferase [Enzymatic activity/volume] in Serum or Plasma H 175 U/L 12 U/L - 78 U/L November 14, 2022 2:05:00 PM [facility] (TECH: TH) 6768-6 Alkaline phosphatase [Enzymatic activity/volume] in Serum or Plasma N 114 U/L 50 U/L - 170 U/L November 14, 2022 2:05:00 PM UTC (TECH: TH) ORDER 500: FENTANYL URINE (L OINC: 21428-0) ORDER DATE: November 14, 2022 1:49:00 PM UTC Specimen Source: URINE PERFORMING LAB: [address] [id number] Result Comment: Final Result Date: November 14, 2022 2:15:00 PM UTC (TECH: TH) LOINC TEST [place] [address]-6 Fentanyl [Presence] in Urine N NEGATIVE NEGATIVE November 14, 2022 2:15:00 PM UTC (TECH: TH) ORDER 600: TRAMADOL URINE (L OINC: 03553-0) ORDER DATE: November 14, 2022 1:49:00 PM UTC Specimen Source: URINE PERFORMING LAB: [address] [id number] Result Comment: Final Result Date: November 14, 2022 2:15:00 PM UTC (TECH: TH) LOINC TEST FLAG [place] [address]-7 Tramadol [Mass/volume] in Urine N NEGATIVE NEGATIVE November 14, 2022 2:15:00 PM UTC (TECH: TH) ORDER 700: URINE DRUG SCREEN - MEDTOX (LOINC: 24750-7) ORDER DATE: November 14, 2022 1:49:00 PM UTC Specimen Source: URINE PERFORMING LAB: [address] [id number] Result Comment: Final Result Date: November 14, [...] 14, 2022 2:14:00 PM UTC (TECH: TH) 52059-7 Methylenedioxymetham phetamine [Mass/volume] in Urine N NEGATIVE NEGATIVE October 2:14:00 PM UTC (TECH: TH) 8220-6 Opiates [Mass/volume] in Urine N NEGATIVE NEGATIVE November 14, 2022 2:14:00 PM UTC (TECH: TH) 17449-9 Amphetamine [Mass/vo lume] in Urine N NEGATIVE NEGATIVE November 14, 2022 2:14:00 PM UTC (TECH: TH) 9428-4 Benzodiazepines [Mas s/volume] in Urine N NEGATIVE NEGATIVE November 14, 2022 2:14:00 PM UTC (TECH: TH) 16722-7 Tricyclic antidepres sants [Mass/volume] in Urine N NEGATIVE NEGATIVE October 2:14:00 PM UTC (TECH: TH) 3774-7 Methadone [Mass/volume] in Urine N NEGATIV E NEGATIVE November 14, 2022 2:14:00 PM UTC (TECH: TH) 9426-8 Barbiturates [Mass/v olume] in Urine N NEGATIVE NEGATIVE November 14, 2022 2:14:00 PM UTC (TECH: TH) 80678-8 Oxycodone [Mass/volume] in Urine N NEGATIV E NEGATIVE November 14, 2022 2:14:00 PM UTC (TECH: TH) 94694-8 Norpropoxyphene [Mas s/volume] in Urine N NEGATIVE NEGATIVE November 14, 2022 2:14:00 PM UTC (TECH: TH) 3415-7 Buprenorphine [Mass/ volume] in Urine N NEGATIVE NEGATIVE November 14, 2022 2:14:00 PM UTC (TECH: TH) ORDER 800: UA AND MICRO/CULT IF INDICATED (LOINC: 35501-5) ORDER DATE: November 14, 2022 1:49:00 PM UTC Specimen Source: URINE PERFORMING LAB: [address] [id number] Result Comment: Final Result Date: November 14, [...] 14, 2022 2:01:00 PM UTC (TECH: TH) 50210-9 Bilirubin.total [Mass/volume] in Urine by Automated test strip N NEGATIVE NEGATIVE November 14, 2022 2:01:00 PM UTC (TECH: TH) 5797-6 Ketones [Mass/volume] in Urine by Test strip N NEGATIVE NEGATIVE November 14, 2022 2:01:00 PM UTC (TECH: TH) 2965-2 Specific gravity of Urine N 1.015 1.005 - 1.035 November 14, 2022 2:01:00 PM UTC (TECH: TH) 94315-5 Erythrocytes [#/volume] in Urine by Automated test strip N NEGATIVE NEGATIVE November 14, 2022 2:01:00 PM UTC (TECH: TH) 20383-4 pH of Urine by Automated test strip N 6.50 5.0 - 7.5 November 14, 2022 2:01:00 PM UTC (TECH: TH) 07106-0 Protein [Presence] in Urine by Test strip N NEGATIVE NEGATIVE November 14, 2022 2:01:00 PM UTC (TECH: TH) 93530-1 Urobilinogen [Mass/volume] in Urine by Automated test strip N 4 mg/dL NORMAL November 14, 2022 2:01:00 PM UTC (TECH: TH) 84696-7 Nitrate [Presence] in Urine N NEGATIVE NEGATIVE November 14, 2022 2:01:00 PM UTC (TECH: TH) 89259-7 Leukocytes [#/volume] in Urine by Test strip N NEGATIVE NEGATIVE November 14, 2022 2:01:00 PM UTC (TECH: TH) 76167-4 Other elements in Urine sediment N NOT REQUIRED November 14, 2022 2:01:00 PM UTC (TECH: TH) 07356-6 Microscopic observation [Identifier] in Urine sediment by Light microscopy N NO November 14, 2022 2:01:00 PM UTC (TECH: TH) ORDER 900: ALCOHOL QUANT (LO INC: 5645-7) ORDER DATE: November 14, 2022 2:29:00 PM UTC Specimen Source: Serum/Plasm a PERFORMING LAB: [address] [id number] Result Comment: Final Result Date: November 14, [...] Priority [place] [address]-1 [facility] EKG study ONE TIME 0 Stat November 14, 2022 1:36:00 PM UT MAYRA Zavala MD [id number] on November 14, 2022 1:36:00 PM UT SCHEDULED PROCEDURES Code System Description Status Scheduled Date Upd ated By Patient scheduled procedure information is not available. MEDICATIONS HOME MEDICATIONS Status RXNORM Medication Dose Route Frequency Dates Comments R eported By Updated By Patient not on Self-Medications [id number] on November 14, 2022 1:44:39 PM UT DISCHARGE MEDICATIONS Status RXNORM Medication Dose Route Frequency Dates Comments Physic windy Updated By No Discharge Medication Info rmation Available INPATIENT MEDICATIONS Status RXNORM Medication Dose Route Frequency Rate Quantity Dates Comments Physician Updated By No Inpatient Medication Info rmation Available SOCIAL HISTORY SOCIAL HISTORY SNOMED-CT Social History Element Description Effective Dates Offered Cessation Comment UpdatedBy [id number] Smoking Status Unknown If Ever Smoked SOCIAL [...] November 14, 2022 1:21:00 PM UT B [address] [address] Discharge November 14, 2022 4:25:00 PM UT D ISCHARGED TO HOME OR SELF CARE ENCOUNTER DIAGNOSES Notes information is not cesar ilable. Code System Diagnosis Onset Date Diagnosis information is not available. ABSTRACT DIAGNOSES Code System Diagnosis Updated By F10.20 ICD10 ALCOHOL DEPENDENCE, UNCOMPLI CATED [id number] on November 17, 2022 12:29:53 AM UT F10.20 ICD10 ALCOHOL DEPENDENCE, UNCOMPLI CATED [id number] on November 17, 2022 12:29:53 AM UT Y90.0 ICD10 BLOOD ALCOHOL LE CLIFF OF LESS THAN 20 MG/100 ML [id number] on November 17, 2022 12:29:53 AM UT Z28.310 ICD10 UNVACCINATED FOR COVID-19 FG [id number] on November 17, 2022 12:29:53 AM UT CARE TEAM Care Violent Crimes Detective Role MANDY NUNEZ Referring MANDY NUNEZ Primary Attending FAMILY NO Primary Care MANDY NUNEZ Admitting CARE TEAM CARE electronic component processor Role on Team Status Start Date End Date Update d By MAYRA Zavala MD Referring normal October 1:45:27 PM UT November 14, 2022 4:25:00 PM [facility] [id number] on November 14, 2022 1:45:27 PM [facility] MAYRA Zavala MD Attending normal October 1:45:27 PM UT November 14, 2022 4:25:00 PM UT [id number] on November 14, 2022 1:45:27 PM [facility] MAYRA Zavala MD Admitting normal October 1:45:27 PM UTC November 14, 2022 4:25:00 PM UT [id number] on November 14, 2022 1:45:27 PM [facility] NO FAMILY PHYSICIAN PCP normal October 172022 1:21:31 PM UT November 14, 2022 4:25:00 PM UT [id number] on November 14, 2022 1:45:27 PM [facility]
[2023-08-12 14:39] LABS: Basophils % 0.5 % (0.1-2.0); Eosinophils # 0.1 K/mm3 (0.0-0.4); Eosinophils % 1.1 % (0.1-12.0); Hematocrit 47.6 % (42.0-52.0); Mean Corpuscular HGB Conc 33.6 g/dL (31.8-35.4); Mean Corpuscular Hemoglobin 33.3 pg (27.0-31.2); Mean Corpuscular Volume 99.3 fl (80-94); Mean Platelet Volume 9.2 fl (7.4-10.4); Monocytes # 0.4 K/mm3 (0.1-1.0); Monocytes % 5.7 % (1.7-9.3); Neutrophils # 4.6 K/mm3 (1.8-7.8); Neutrophils % 75.7 % (37.0-80.0); Platelet Count 134 K/mm3 (142-424); Red Cell Distribution Width 13.9 % (11.5-17.5); White Blood Count 6.1 K/mm3 (4.8-10.8)
[2023-08-12 15:29] LABS: Alanine Aminotransferase 57 U/L (12-78); Albumin Level 4.5 g/dl (3.5-5.0); Albumin/Globulin Ratio 1.6 (1.1-1.8); Alkaline Phosphatase 88 U/L (38-126); Anion Gap 17.4 mEq/L (5-15); Aspartate Amino Transferase 39 U/L (17-59); Bilirubin,Total 0.7 mg/dl (0.2-1.3); Blood Urea Nitrogen 15 mg/dl (9-20); Calcium 9.6 mg/dl (8.4-10.2); Carbon Dioxide 22 mmol/L (22.0-30.0); Chloride 102 mmol/L (98-107); Chol/HDL Ratio 3.8 (1-3.5); Cholesterol 216 mg/dl (140-200); Estimated Glomerular Filt Rate 87 ml/min (>60); GFR (African American) 105 ML/MIN (>60); Globulin 2.9 g/dL (1.3-3.2); Glucose 184 mg/dl (74-100); HDL Cholesterol 57 mg/dl (40-60); Potassium 4.4 mmoL/L (3.5-5.1); Sodium 137 mmol/L (136-145); Total Protein,Serum 7.4 g/dl (6.3-8.2); Triglycerides 189 mg/dl (30-150); VLDL Cholesterol 38 mg/dL (0-40)
[2023-08-12 15:40] LABS: Direct LDL Cholesterol 100.69 mg/dL (100-129)
[2023-08-12 16:18] LABS: Hemoglobin A1C 6.2 % (4.0-6.0)
[2023-08-12 19:33] LABS: Creatinine,Urine Random 54 mg/dL (Not Estab.)
[2023-08-12 19:35] LABS: Microalbumin < 6.000 mg/L (0-16.7)
== END 2023-08-12 23:59 | disposition home or self-care (01) ==
LOC: LAB.DROPOF 13:19
PROVIDERS: PCP Internal Medicine; Visit Provider Internal Medicine
DX: E11.9 Type 2 diabetes mellitus without complications (principal); E78.5 Hyperlipidemia, unspecified; M54.32 Sciatica, left side; T07.XXXD Unspecified multiple injuries, subsequent encounter
CPT/HCPCS: 80053; 80061; 82043; 82570; 83036; 85025

== ENCOUNTER 2024-02-11 14:14 | Outpatient (CLI) | payer MEDICAID, SELFPAY ==
[2024-02-11 13:11] LABS: Alanine Aminotransferase 42 U/L (12-78); Albumin Level 4.9 g/dl (3.5-5.0); Albumin/Globulin Ratio 1.7 (1.1-1.8); Alkaline Phosphatase 82 U/L (38-126); Anion Gap 14.7 mEq/L (5-15); Aspartate Amino Transferase 33 U/L (17-59); Bilirubin,Total 0.8 mg/dl (0.2-1.3); Blood Urea Nitrogen 21 mg/dl (9-20); Carbon Dioxide 26 mmol/L (22.0-30.0); Chloride 103 mmol/L (98-107); Chol/HDL Ratio 3.8 (1-3.5); Cholesterol 200 mg/dl (140-200); Estimated Glomerular Filt Rate 87 ml/min (>60); GFR (African American) 105 ML/MIN (>60); Globulin 2.9 g/dL (1.3-3.2); Glucose 133 mg/dl (74-100); HDL Cholesterol 53 mg/dl (40-60); Potassium 4.7 mmoL/L (3.5-5.1); Sodium 139 mmol/L (136-145); Total Protein,Serum 7.8 g/dl (6.3-8.2); Triglycerides 141 mg/dl (30-150); VLDL Cholesterol 28 mg/dL (0-40)
[2024-02-11 13:19] LABS: Hemoglobin A1C 6.4 % (4.0-6.0)
[2024-02-11 13:21] LABS: Direct LDL Cholesterol 112.51 mg/dL (100-129)
[2024-02-11 13:42] LABS: Prostate Specific Ag Screen 2.5 ng/ml (0.0-4.0)
== END 2024-02-11 23:59 | disposition home or self-care (01) ==
LOC: LAB.DROPOF 14:14
PROVIDERS: PCP Internal Medicine; Visit Provider Internal Medicine
DX: E11.9 Type 2 diabetes mellitus without complications (principal); M79.2 Neuralgia and neuritis, unspecified; E78.5 Hyperlipidemia, unspecified; Z12.5 Encounter for screening for malignant neoplasm of prostate; Z79.84 Long term (current) use of oral hypoglycemic drugs
CPT/HCPCS: 80053; 80061; 83036; G0103

== ENCOUNTER 2024-06-10 08:05 | Outpatient (CLI) | payer MEDICAID, SELFPAY ==
--- NOTE | 2024-06-10 08:06 | CT_ITS ---
FINAL REPORT TECHNIQUE: Thin section axial CT images with coronal and sagittal reformats were performed after the administration of IV contrast. This study was performed with techniques to keep radiation doses as low as reasonably achievable (ALARA). Individualized dose reduction techniques using automated exposure control or adjustment of mA and/or kV according to the patient''s size were employed. CLINICAL HISTORY: swollen tonsil FINDINGS: The nasopharynx is unremarkable. There is mild prominence to the right tonsillar pillar. The epiglottis is unremarkable. The larynx appears normal. The thyroid gland is homogeneous. The salivary glands are unremarkable. There is no lymphadenopathy. There is mild mucoperiosteal thickening in the floor of the left maxillary sinus. Visualized paranasal sinuses are otherwise clear. There is no acute osseous abnormality. IMPRESSION: Enlargement of the right tonsillar pillar is favored to be infectious or inflammatory. There is no abscess or lymphadenopathy. Reviewed, Interpreted and Dictated by Fanny Rios MD Transcribed by Kay Morataya Authenticated and [facility]
[2024-06-10 08:26] LABS: Blood Urea Nitrogen 20 mg/dl (9-20); Estimated Glomerular Filt Rate 87 ml/min (>60); GFR (African American) 105 ML/MIN (>60)
[2024-06-10] MEDS: SODIUM CHLORIDE 0.9% 10ML SYR (RAD ONLY) 10 ML IV (09:21)
[2024-06-10] MEDS: IOPAMIDOL-370 (76%);100ML BOTTLE 75 ML IV (09:21)
== END 2024-06-10 23:59 | disposition home or self-care (01) ==
LOC: RAD 08:06
PROVIDERS: PCP Internal Medicine; Visit Provider Nurse Practitioner
DX: J35.1 Hypertrophy of tonsils (principal)
CPT/HCPCS: 36415; 70491; 82565; 84520; Q9967

== ENCOUNTER 2024-08-11 11:30 | Outpatient (CLI) | payer MEDICAID, SELFPAY ==
[2024-08-11 19:11] LABS: Creatinine,Urine Random 82 mg/dL (Not Estab.); Microalbumin < 6.000 mg/L (0-16.7)
[2024-08-11 19:17] LABS: Alanine Aminotransferase 29 U/L (12-78); Albumin Level 4.8 g/dl (3.5-5.0); Albumin/Globulin Ratio 1.7 (1.1-1.8); Alkaline Phosphatase 106 U/L (38-126); Aspartate Amino Transferase 26 U/L (17-59); Bilirubin,Total 0.7 mg/dl (0.2-1.3); Blood Urea Nitrogen 14 mg/dl (9-20); Calcium 9.6 mg/dl (8.4-10.2); Carbon Dioxide 27 mmol/L (22.0-30.0); Chloride 102 mmol/L (98-107); Chol/HDL Ratio 4.7 (1-3.5); Cholesterol 179 mg/dl (140-200); Estimated Glomerular Filt Rate 77 ml/min (>60); GFR (African American) 93 ML/MIN (>60); Globulin 2.8 g/dL (1.3-3.2); Glucose 152 mg/dl (74-100); HDL Cholesterol 38 mg/dl (40-60); Sodium 140 mmol/L (136-145); Total Protein,Serum 7.6 g/dl (6.3-8.2); Triglycerides 234 mg/dl (30-150); VLDL Cholesterol 47 mg/dL (0-40)
[2024-08-11 19:26] LABS: Anion Gap 15.5 mEq/L (5-15); Potassium 4.5 mmoL/L (3.5-5.1)
[2024-08-11 19:28] LABS: Direct LDL Cholesterol 87.09 mg/dL (100-129)
[2024-08-11 19:31] LABS: Basophils % 0.6 % (0.1-2.0); Eosinophils # 0.1 Kmm3 (0.0-0.4); Eosinophils % 1.4 % (0.1-12.0); Hematocrit 48.1 % (42.0-52.0); Hemoglobin 15.9 g/dL (14.1-18.0); Immature Granulocytes # 0.01 10^3uL; Immature Granulocytes % 0.2 %; Lymphocytes # 1.1 K/mm3 (0.7-4.5); Lymphocytes % 22.6 % (10-50); Mean Corpuscular HGB Conc 33.1 g/dL (31.8-35.4); Mean Corpuscular Hemoglobin 31.3 pg (27.0-31.2); Mean Corpuscular Volume 94.7 fl (80-94); Mean Platelet Volume 10.1 fl (7.4-10.4); Monocytes # 0.3 K/mm3 (0.1-1.0); Monocytes % 6.7 % (1.7-9.3); Neutrophils # 3.5 K/mm3 (1.8-7.8); Neutrophils % 68.5 % (37.0-80.0); Nucleated Red Blood Cells # 0 10^3/uL; Nucleated Red Blood Cells % 0 %; Platelet Count 161 K/mm3 (142-424); Red Blood Count 5.08 M/mm3 (4.60-6.20); Red Cell Distribution Width 13.3 % (11.5-17.5); Red Cell Distribution Width-SD 46.3 fL
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
== END 2024-08-11 23:59 | disposition home or self-care (01) ==
LOC: LAB.DROPOF 08-12 12:52
PROVIDERS: PCP Internal Medicine; Visit Provider Internal Medicine
DX: E78.5 Hyperlipidemia, unspecified (principal); E11.9 Type 2 diabetes mellitus without complications; Z51.81 Encounter for therapeutic drug level monitoring; Z79.1 Long term (current) use of non-steroidal anti-inflammatories (NSAID)
CPT/HCPCS: 80053; 80061; 82043; 82570; 83036; 85025

== ENCOUNTER 2025-02-14 16:33 | Outpatient (CLI) | payer MEDICAID, SELFPAY ==
--- OUTSIDE RECORDS SUMMARY | 2025-01-31 07:12 | XMS_ITS | Encounter Summary ---
Author Organization Healthcare Address [address] 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 No 01/10/2023 Within the last year, have y ou been humiliated or emotionally abused in other ways by your partner or ex-partner? No Within the last year, have y ou been kicked, hit, slapped, or otherwise physically hurt by your partner or ex-partner? No 01/10/2023 Within the last year, have y ou been raped or forced to have any kind of sexual activity by your partner or ex-partner? No 01/10/2023 Social Connection and Isolation Panel Answer Date Recorded In a typical week, how many times do you talk on the phone with family, friends, or neighbors? More than three times a week 01/10/2023 How often do you get togethe r with friends or relatives? More than three times a week 01/10/2023 How often do you attend chur ch or sabianism services? Never 01/10/2023 Do you belong to any clubs o r organizations such as religion groups, unions, fraternal or athletic groups, or school groups? Yes 01/10/2023 How often do you attend meet ings of the clubs or organizations you belong to? More than 4 times per year 01/10/2023 Are you , , di vorced, , never , or living with a partner? 01/10/2023 AUDIT-C Answer Date Recorded Q1: How often do you have a drink containing alcohol? Never 01/10/2023 Q2: How many drinks containi ng alcohol do you have on a typical day when you are drinking? Patient does not drink Q3: How often do you have si x or more drinks on one occasion? Never 01/10/2023 Overall Financial Resource Strain (CARDIA) Answe r Date Recorded How hard is it for you to pa y for the very basics like food, housing, medical care, and heating? Hard 01/10/2023 PHQ-2 Answer Date Recorded Patient Health Questionnaire-2 Score 0 01/31/2025 [facility] Occupational Stress Questionnaire Answer Date Recorded Do you feel stress - tense, restless, nervous, or anxious, or unable to sleep at night because your mind is troubled all the time - these days? Not at all 01/10/2023 Exercise Vital Sign Answer Date Recorde d On average, how many days pe r week do you engage in moderate to strenuous exercise (like a brisk walk)? 5 days 01/10/2023 On average, how many minutes do you engage in exercise at this level? 60 min 01/10/2023 Hunger Vital Sign Answer Date Recorded Within the past 12 months, y ou worried that your food would run out before you got the money to buy more. Never true 01/11/20 23 Within the past 12 months, t he food you bought just didn't last and you didn't have money to get more. Never true 01/10/2023 PRAPARE - Transportation Answer Date Re corded In the past 12 months, has l ack of transportation kept you from medical appointments or from getting medications? No 12/16 In the past 12 months, has l ack of transportation kept you from meetings, work, or from getting things needed for daily living? No 01/10/2023 Housing Stability Vital Sign Answer Newton e Recorded In the last 12 months, was t here a time when you were not able to pay the mortgage or rent on time? No 01/10/2023 In the last 12 months, how many places have you lived? 1 01/10/2023 In the last 12 months, was t here a time when you did not have a steady place to sleep or slept in a custodial (including now)? No 01/10/2023 Utilities Answer Date Recorded In the past 12 months has th e electric, gas, oil, or water company threatened to shut off services in your home? No 01/10/2023 PHQ-2A Answer Date Recorded Patient Health Questionnaire-2 Score 0 01/17/2023 Sex and Gender Information Value Date Recorded Sex Assigned at Not on file Legal Sex Male 8:37 PM EDT Gender Identity Not on file Sexual Orientation Not on file documented as of this encounter Functional Status * Over the past 2 weeks, how often have you been bothered by any of the following problems? Question Answer Date of Assessment Author Little interest or pleasure in doing things Not at all 01/31/2025 9:46 AM Oumar Tse Feeling down, depressed, or hopeless Not at all 01/15 9:46 AM Oumar Tse Patient Health Questionnaire-2 Score 0 01/15 9:46 AM Oumar Tse * Question Answer Date of Assessment Author Thoughts that you would be b leeann off or hurting yourself in some way Not at all 01/31/2025 9:46 AM Oumar Tse * How difficult have these problems made it for you to do your work, take care of things at home, or get along with other people? Answer Date of Assessment Author Not difficult at all 01/31/2025 9:46 AM Oumar Lam documented as of this encounter Medications at Time of Discharge gabapentin (Neurontin) 400 MG capsule Take by mouth. ibuprofen 800 MG tablet 1 tablet. 11/11/2024 Jardiance 25 MG Take 1 tablet (25 mg) by mouth daily. 01/08/2023 metFORMIN (Glucophage) 500 MG tablet Take 2 tablets (1,000 mg) by mouth 2 (two) times a day with meals. naloxone (Narcan) 4 mg/0.1 mL nasal spray 1. Give 1 spray in nostril for no/slow breathing or cannot wake after opioid use 2. Call 911 3. Repeat in other nostril if symptoms continue 1 each 03/26/2024 senna-docusate (Jen-Colace) 8.6-50 MG tablet Take 1 tablet by mouth 2 (two) times a day. 28 tablet 03/26/2024 documented as of this encounter Plan of Treatment Upcoming Encounters Date Type Department Care Team (Late st Contact Info) Description 05/02/2025 7:30 AM EST Appointment [facility] Radiology [address] [place] [address] 05/02/2025 8:50 AM EST Office Visit [facility] Orthopaedic Surgery & Sports Medicine [address], [address] [place] [address] Santiago Mcrae MD [address] [facility] [address] [place] [address] 05/02/2025 10:20 AM EST Office Visit [facility] Interventional Pain Medicine [address] [facility] [place] [address] Ralph Landaverde MD [address] [facility] [address] [place] [phone] documented as of this encounter Procedures Procedure Name Priority Date/Time Associated Diagnosis Comments XR FEMUR LEFT 2+ VIEWS Routine 01/31/2025 7:23 AM EST 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 CRITICAL RESULT: No. COMMUNICATION: Per this written report. Drafted by Reese Hernandez MD on 01/31/2025 8:21 AM Final report signed by Reese Hernandez MD on 01/31/2025 8:22 AM Narrative 01/31/2025 8:22 AM EST CLINICAL INDICATION: pain TECHNIQUE: XR FEMUR LEFT 2+ VIEWS COMPARISON: October 25, 2024 FINDINGS: Retrograde femoral nail is redemonstrated spanning a femoral diaphyseal fracture which demonstrates similar alignment and some interval healing. No hardware complication. Proximal tibial external fixation site. Continued knee tricompartmental degenerative changes of femorotibial chondrocalcinosis. Procedure Note Reese Hernandez MD - 01/31/2025 CLINICAL INDICATION: pain TECHNIQUE: XR FEMUR LEFT 2+ VIEWS COMPARISON: October 25, 2024 FINDINGS: Retrograde femoral nail is redemonstrated spanning a femoral diaphysealfracture which demonstrates similar alignment and some interval healing.No hardware complication. Proximal tibial external fixation site.Continued knee tricompartmental degenerative changes of femorotibialchondrocalcinosis. IMPRESSION: Femoral nail in place with healing femoral fracture in similaralignment. CRITICAL RESULT: No. COMMUNICATION: Per this written report. 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
--- OUTSIDE RECORDS SUMMARY | 2025-01-31 07:50 | XMS_ITS | Encounter Summary ---
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, subsequent encounter Lily Ching APRN [address] [facility] [address] [place] [address] Phone: tel: fax: Referral ID Status Reason Start Date Expiration Date Visits Requested Visits Authorized [id number] Authorized Consult and Treat 01/31/2025 08/02/2026 1 1 Reason for Visit * Reason Comments Follow-up Encounter Details Date Type Department Care Team (Late st Contact Info) Description 01/31/2025 7:50 AM EST Office Visit [facility] Orthopaedic Surgery & Sports Medicine [address] [place] [address] Santiago Mcrae MD [address] [facility] [address] [place] [address] 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 Never 01/10/2023 Do you belong to any clubs o r organizations such as hindu groups, unions, fraternal or athletic groups, or [...] Recorded Patient Health Questionnaire-2 Score 0 01/31/2025 [facility] ional Health - Occupational Stress Questionnaire Answer [...] place to sleep or slept in a retirement (including now)? No 01/10/2023 Utilities Answer Date [...] on file documented as of this encounter Last Filed Vital Signs Vital Sign Reading Time Taken Comments Blood Pressure 127/83 01/31/2025 7:41 AM EST Pulse 73 01/31/2025 7:41 AM EST Temperature 36.4 C (97.6 F) 01/31/2025 7:41 AM EST Respiratory Rate - - Oxygen Saturation 97% 01/31/2025 7:41 AM EST Inhaled Oxygen Concentration - - Weight 88.5 kg (195 lb) 01/31/2025 7:41 AM EST Height 182.9 cm (6') 01/31/2025 7:41 AM EST Body Mass Index 26.45 01/31/2025 7:41 AM EST documented in this encounter Miscellaneous Notes * Progress Notes - Lily Ching, FAMILY AND DIVORCE LEGAL ASSISTANT - 01/31/2025 7:50 AM EST Chief complaint: Non-union repair of left femoral shaft fx (DOS: 03/25/[address] Mcrae ) s/p Open L femoral shaft fx s/p IMN L femoral shaft (2022, [place]) Subjective: Leonardo Woo is a 59 y.o. y/o male who comes in today for follow-up for the above surgery. The patient reports that unfortunately his pain has been increasing since we last saw him. It is mainly inhis left lateral hip and left lateral thigh. The patient has chronic nerve pain but reports little relief even after implantation of a dorsal ganglion stimulator earlier this year. He continues to ambulate with a 4 prong cane. He denies ever doing formal PT as an outpatient. Objective: Left lower extremity Inspection - wounds are healed Able to perform SLR Motor - TA, GSC, EHL, FHL intact Sensory - SP, DP, Sural, Saph, Tibal nerves intact to light touch though mildly diminished comparedto contralateral side. Vascular - 2+ DP/PT pulses, cap refill <2sec, toes warm and well perfused Vitals: 01/31/25 0741 BP: 127/83 Pulse: 73 Temp: 36.4 ??C (97.6 ??F) SpO2: 97% Imaging: Left femur x-rays were personally reviewed and interpreted radiographic findings were stable implants with no signs of loosening. Minimal to no change in healing of non-union site since last set of x-rays/ Assessment and Plan: 58-year-old male s/p nonunion repair of his previous open femoral shaft fracture. -Patient does have worsening pain however he never participated in formal outpatient PT. He would like to avoid having another surgery until it is absolutely necessary so he is willing to try PT. -WBAT LLE -we will see patient back in 3 months with repeat radiographs to continue monitoring his non-union and see how he does with PT. Lily Ching APRN Department of Orthopedic Surgery and Sports Medicine Consult Pager: [phone] Service Pager: [phone] documented in this encounter Plan of Treatment Upcoming Encounters Date Type Department Care Team (Late st Contact Info) Description 05/02/2025 7:30 AM EST Appointment [facility] Radiology [address] [place] [address] 05/02/2025 8:50 AM EST Office Visit [facility] Orthopaedic Surgery & Sports Medicine [address], [address] [place] [address] Santiago Mcrae MD [address] [place] [address] 05/02/2025 10:20 AM EST Office Visit [facility] Interventional Pain Medicine [address] [facility] [place] [phone] Ralph Landaverde MD [address] [facility] [address] [place] [phone] Scheduled Orders Name Type Priority Associated Diagnoses Orde r Schedule XR Femur Left 2+ Views Imaging Routine Type III 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, subsequent encounter 1 Occurrences starting 01/31/2025 until 08/04/2026 Scheduled Referrals Name Type Priority Associated Diagnoses Order Schedule Physical Therapy (outgoing) Outpatient Referral Routine Type III 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, subsequent encounter 1 Occurrences starting 01/31/2025 until 08/04/2026 documented as of this encounter Visit Diagnoses Diagnosis Type III 

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
[2025-02-14 15:37] LABS: Hemoglobin A1C 6.9 % (4.0-6.0)
[2025-02-14 15:48] LABS: Albumin Level 5.2 g/dl (3.5-5.0); Chloride 100 mmol/L (98-107); Potassium 4.6 mmoL/L (3.5-5.1); Sodium 143 mmol/L (136-145)
[2025-02-14 15:51] LABS: Alanine Aminotransferase 40 U/L (12-78); Albumin/Globulin Ratio 1.6 (1.1-1.8); Alkaline Phosphatase 81 U/L (38-126); Anion Gap 21.6 mEq/L (5-15); Aspartate Amino Transferase 35 U/L (17-59); Bilirubin,Total 1.1 mg/dl (0.2-1.3); Blood Urea Nitrogen 16 mg/dl (9-20); Carbon Dioxide 26 mmol/L (22.0-30.0); Cholesterol 216 mg/dl (140-200); Creatinine,Serum 1.00 mg/dl (0.66-1.25); Estimated Glomerular Filt Rate 76 ml/min (>60); GFR (African American) 93 ML/MIN (>60); Globulin 3.3 g/dL (1.3-3.2); Total Protein,Serum 8.5 g/dl (6.3-8.2); Triglycerides 262 mg/dl (30-150)
[2025-02-14 15:52] LABS: Calcium 9.4 mg/dl (8.4-10.2); Glucose 115 mg/dl (74-100); HDL Cholesterol 47 mg/dl (40-60)
--- OUTSIDE RECORDS SUMMARY | 2025-02-14 16:36 | XMS_ITS | Encounter Summary ---
Author Organization Healthcare Address [address] [place] [address] Care Team Providers Care Wrapper Opener Name Role Phone Shyam Lantigua MD Primary Care Provider Encounter Details Date Type Department Care Team (Latest Contact Info) Description 01/31/2025 Travel Social History Tobacco Use Types Packs/Day Years [...] week 01/10/2023 How often do you attend [facility] or congregational services? Never 01/10/2023 Do you belong to any clubs o r organizations such as sabianism groups, unions, fraternal or athletic groups, or [...] Recorded Patient Health Questionnaire-2 Score 0 01/31/2025 [facility] - Occupational Stress [...] place to sleep or slept in a fci (including now)? No 01/10/2023 Utilities Answer Date [...] Oumar Lam documented as of this encounter Plan of Treatment Upcoming Encounters Date Type Department Care Team (Late st Contact Info) Description 05/02/2025 7:30 AM EST Appointment [facility] Radiology [address] [place] [address] 05/02/2025 8:50 AM EST Office Visit [facility] Orthopaedic Surgery & Sports Medicine [address] [place] [address] Santiago Mcrae MD [address] [place] [address] 05/02/2025 10:20 AM EST Office Visit [facility] Interventional Pain Medicine [address] [facility] [place] [address] Ralph Landaverde MD [address] [facility] [address] [place] [address] documented as of this encounter Visit Diagnoses Not on filedocumented in this encounter Additional Health Concerns Assessment Noted Time A fall risk assessment has been complete d for the patient 01/31/2025 9:45 AM EST A Body Mass Index follow-up plan has been documented for the patient 02/01/2025 3:15 PM EST documented as of this encounter Care Teams Wrapper Opener Relationship Specialty Start Date End Date Shyam Lantigua MD [address] [facility] [address] [place] [address] PCP - General 01/18/23 documented as of this encounter
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
== END 2025-02-14 23:59 | disposition home or self-care (01) ==
LOC: LAB.DROPOF 16:34
PROVIDERS: PCP Internal Medicine; Visit Provider Internal Medicine
DX: M79.2 Neuralgia and neuritis, unspecified (principal); E78.5 Hyperlipidemia, unspecified; Z12.5 Encounter for screening for malignant neoplasm of prostate; E11.9 Type 2 diabetes mellitus without complications
CPT/HCPCS: 80053; 80061; 83036; G0103

== ENCOUNTER 2025-03-16 11:00 | Outpatient (RCR) | payer MEDICAID, SELFPAY | END 2025-03-16 23:59 | disposition home or self-care (01) | LOC: PT 11:00 | PROVIDERS: PCP Internal Medicine; Visit Provider Nurse Practitioner | DX: S72.322 Displaced transverse fracture of shaft of left femur (principal) | CPT/HCPCS: 97110; 97162; 97530 ==